=== PATIENT | male | born 1965 | race Caucasian/White ===

== ENCOUNTER 2024-06-08 15:27 | Inpatient (IN) | payer BC, SELFPAY ==
[2024-06-07] VITALS (10 sets, daily range): BP systolic 150–182; BP diastolic 84–109; BMI 27.7
[2024-06-07] MEDS: VALIUM INJECTION 5 MG IV (11:04)
[2024-06-07] MEDS: TORADOL 15 MG IV (11:04)
[2024-06-07] MEDS: DECADRON 10 MG IV (12:23)
[2024-06-07 13:27] LABS: % Basophils 0.6 % (0-2); % Eosinophils 0.1 % (0-6); % Immature Granulocytes 0.5 % (0-0.5); % Lymphocytes 12.2 % (20.5-51.1); % Monocytes 8.3 % (1.7-9.3); % Neutrophils 78.3 % (42.2-75.2); Absolute Basophils 0.1 10^3/uL (0-0.2); Absolute Lymphocytes 1.1 10^3/uL (1.2-3.4); Absolute Monocytes 0.7 10^3/uL (0.1-0.6); Absolute Neutrophils 6.9 10^3/uL (1.4-6.5); Hemoglobin 15.5 g/dL (13.0-18.0); Mean Corpuscular Hgb 32.4 pg (27.0-31.0); Mean Corpuscular Volume 89.8 fL (80.0-94.0); Nucleated Red Blood Cells % 0 % (-); Platelet Count 111 10^3/uL (130-400); Red Blood Cell Count 4.79 10^6/uL (4.70-6.10); Red Cell Dist. Width 12.1 % (11.5-14.5); White Blood Cell Count 8.8 10^3/uL (4.8-10.8)
[2024-06-07 13:33] LABS: ALT (SGPT) 43 U/L (0-50); AST (SGOT) 35 U/L (17-59); Albumin 3.7 g/dl (3.5-5.0); Alkaline Phosphatase 68 U/L (38-126); Blood Urea Nitrogen 18 mg/dl (9-20); Calcium 8.6 mg/dl (8.4-10.2); Carbon Dioxide 28 mmol/L (22-30); Chloride 94 mmol/L (98-107); Estimated Creatinine Clearance 112 ml/min; Glucose 253 mg/dl (70-99); Potassium 4.4 mmol/L (3.5-5.1); Sodium 131 mmol/L (135-145); Total Bilirubin 2.3 mg/dl (0.2-1.3); Total Protein 6.5 g/dl (6.3-8.2); eGFR > 60.00
--- NOTE | 2024-06-07 14:13 | ED.GENMED ---
History of Present Illness
General
Chief Complaint: Back Pain
Time Seen by Provider: 06/07/24 10:51
History of Present Illness
History of Present Illness:
58-year-old male presents to the emergency department for evaluation of intractable low back pain. Pain has been ongoing for the past several days but in the past 3 days has become so severe that he is unable to walk. He is having frequent spasms
because his legs do feel weak. Denies any urinary retention or incontinence. No saddle anesthesias. Does have chronic left lower extremity radiculopathy' sciatica' but reports new paresthesias and radicular pain into the right foot today. Denies
any traumatic injuries.
Past History
Past History
ED Past Medical History: None
Social History
Tobacco: Non-smoker
Personal:
Living: with family
Employment: Employed
Review of Systems
Review of Systems
Allergies reviewed?: Yes
All Other Systems: ROS reviewed and negative except as documented in HPI and ROS
Phy Exam
Physical Exam
Physical Exam:
GEN: Well appearing, NAD, WDWN
HEENT: Oral mucosa moist, no scleral icterus
Cardiac: Regular rate
Lung: No respiratory distress, no tachypnea
MSK: No gross deformity or injuries. No reproducible tenderness to the lumbar spine or spinous processes. Lumbar range of motion profoundly limited due to patient's severe pain
Skin: Good color, no pallor or jaundice, no rashes
Neuro: AO x3, 5 out of 5 strength of bilateral lower extremities with 1+ patellar reflexes, sensation to light palpation intact bilaterally
Psych: Calm, cooperative
Course
Orders/Labs/Results
Orders:
Orders
06/07/24 10:51
Ketorolac [Toradol] 15 mg IV NOW STA
diazePAM [Valium Injection] 5 mg IV NOW STA
06/07/24 12:14
CR Lumbar Spine 2 Or 3 Views Urgent
Comment:
Reason For Exam: low back pain
06/07/24 12:18
Dexamethasone Sod Phosphate [Decadron] 10 mg IV NOW STA
06/07/24 13:07
Complete Blood Count/With Diff Urgent
Comprehensive Metabolic Panel Urgent
Abnormal Lab Results
06/07/24
13:07
MCH 32.4 H pg
(27.0-31.0)
Plt Count 111 L 10^3/uL
(130-400)
Absolute Neuts (auto) 6.9 H 10^3/uL
(1.4-6.5)
Absolute Lymphs (auto) 1.1 L 10^3/uL
(1.2-3.4)
Absolute Monos (auto) 0.7 H 10^3/uL
(0.1-0.6)
Neutrophils % 78.3 H %
(42.2-75.2)
Lymphocytes % 12.2 L %
(20.5-51.1)
Sodium 131 L mmol/L
(135-145)
Chloride 94 L mmol/L
(98-107)
Glucose 253 H mg/dl
(70-99)
Total Bilirubin 2.3 H mg/dl
(0.2-1.3)
06/07/24 13:07
06/07/24 13:07
Vital Signs
Initial and Last Documented VS:
Initial Vital Signs
Pulse Resp Pulse Ox
107 19 95
06/07/24 10:51 06/07/24 10:51 06/07/24 10:51
Last Documented Vital Signs
Temp Pulse Resp BP Pulse Ox
98.6 F 99 18 157/84 94
06/07/24 10:52 06/07/24 14:07 06/07/24 14:07 06/07/24 14:07 06/07/24 14:07
MDM/Problems Addressed
MDM/Problems Addressed:
Patient has intractable pain with any degree of movement. He does have some degree of radiculopathy but no saddle anesthesias, lower extremity weakness, or urinary retention concerning for cauda equina. However after multiple rounds of IV
medications the patient was unable to achieve any degree of pain control thus we will admit for further pain control
*Critical Care Note
Total Time (30-74mins, 75-104mins- exclusive of procedures): Not Applicable
ED Attending Note
-
Portions of this chart may have been created with voice recognition software.� Occasional wrong word or��sound alike� substitutions may have occurred due to the inherent limitations of voice recognition software.
Discharge Plan
Departure
Patient Disposition: Admit
Date of Disposition: 06/07/24
Time of Disposition: 14:16
Admit to: Med/Surg
Presentation/result/management discussed w/ accepting MD/DO: Hospitalist
Discharge Problem:
Intractable low back pain
Prescriptions:
No Action
ibuprofen [Advil] 200 mg Tablet
400 mg PO Q8HPRN PRN (Reason: mild pain)
Icy Hot (menthol) 5 % Adhesive Patch,Medicated
1 patch TOPICAL HSPRN PRN (Reason: sacral area pain)
Referrals:
UNKNOWN - PT DOES,NOT KNOW [Family Provider] -
Interventions
Interventions:
*Risk Screen - Suicide Last Done: 06/07/24 10:52
*General Assessment Last Done: 06/07/24 10:52
*Neglect/Abuse Screening Last Done: 06/07/24 10:52
*ED- Fall Risk Assessment Last Done: 06/07/24 10:52
*ED COVID-19 Vaccine History Last Done: 06/07/24 10:52
ED-Musculoskeletal Assessment Last Done: 06/07/24 10:52
Discharge Date and Time
Print Language: KYRGYZ
--- NOTE | 2024-06-07 14:35 | HPS.HSE ---
Addendum entered and electronically signed by Merary Ramírez DO 06/07/24 17:26:
Total bili elevated 2.3
-no RUQ abdominal pain
-repeat CMP in am, monitor for now
Original Note:
Family Physician
-
Family Physician: NOT KNOW UNKNOWN - PT DOES
Chief Complaint
-
Intractable low back pain
History of Present Illness
The patient is a 58-year-old male without significant past medical history who presented to the emergency department secondary to intractable low back pain. He states his pain has been going on for the past several days since Monday however over
the past 3 days has become so severe and is unable to ambulate currently. He describes it as low back spasms that are so severe he cannot get up out of bed. He also had chills yesterday. He has had sciatica 20 years ago and he says this does not
feel anything like it did back then. He has frequent spasms and his legs feel weak. He denies any urinary incontinence nor retention. He denies any saddle anesthesia. He has chronic left sided lower extremity radicular radiculopathy and sciatica
however reports that these new symptoms are radiating to the foot today. His laboratory in the emergency department is remarkable for platelets 111 glucose 253 total bilirubin 2.3 sodium 131 chloride 94. Lumbar spine x-ray performed in the
emergency department pending official read.
ED treatment: Toradol 50 mg IV, Valium 5 mg IV, Decadron 10 mg IV
Medical History
Past Medical History
Past Medical History: Reports Other (Chronic left lower extremity radiculopathy described as sciatica)
Past Surgical History: Reports None
Social History
Tobacco: Non-smoker
Alcohol: Occasional
Drug: None
Personal:
Living: With Family
Family History
Family History: Not pertinent
Allergies / Home Medications
Allergies reflects when Allergies were last updated in [facility].
Home Medications with original date entered in [facility]
Allergy/Medication List:
Allergies
Allergy/AdvReac Type Severity Reaction Status Date / Time
No Known Allergies Allergy Unverified 07/18/16 15:43
Home Medications
ibuprofen 200 mg tablet (Advil) 400 mg PO Q8HPRN PRN mild pain 06/07/24
menthol 5 % topical patch (Icy Hot (menthol)) 1 patch topical HSPRN PRN sacral area pain 06/07/24
Review of Systems
-
A 12 point ROS was completed and negative except as noted: Yes
Physical Exam
Vital Signs
Vital Signs
Temp Pulse Resp BP Pulse Ox
98.6 F 99 18 157/84 94
06/07/24 10:52 06/07/24 14:07 06/07/24 14:07 06/07/24 14:07 06/07/24 14:07
Physical Exam
General: Well Developed, Well Nourished and Other (Uncomfortable due to pain)
HEENT: NormoCephalic, Anicteric and Moist mucous membranes
Respiratory: Clear
Cardiac: S1/S2 and Regular Rhythm
GI: Soft, Non Tender and Non Distended
Musculoskeletal: No Clubbing, No Cyanosis, No Edema and Other (Straight leg test on the right is positive at 30 degrees)
Skin: Warm and Dry
Neuro: AO x 3 and No Motor Deficits
Laboratory Results
-
06/07/24 13:07
06/07/24 13:07
Laboratory Results
Total Bilirubin 2.3 mg/dl (0.2-1.3) H 06/07/24 13:07
AST 35 U/L (17-59) 06/07/24 13:07
ALT 43 U/L (0-50) 06/07/24 13:07
Alkaline Phosphatase 68 U/L (38-126) 06/07/24 13:07
Data Reviewed
-
Diagnostic Radiology: Image Personally Visualized and interpreted and Report Reviewed by me (Mild multilevel degenerative disc disease within lumbar spine, as above. Nonspecific mild to moderate gaseous distention of multiple small and large bowel
loops. Mild to moderate amount stool within the proximal colon.)
Impression/Plan
-
IMPRESSION:
# Multiple levels of degenerative disc disease within the lumbar spine
# Intractable low back pain associated with severe spasms and chills yesterday, status post 1 dose of Decadron IV in the emergency department
- Continue Tylenol as needed, IV Toradol as needed, IV Dilaudid low-dose as needed for breakthrough pain
- MRI of the spine pending
-Physical therapy consultation
- Consider consultation to neurosurgery or interventional radiology pending imaging results
-
#Mild Thrombocytopenia, platelets 111, no bleeding
Repeat CBC in the morning, monitor for now pending repeat
# Hyperglycemia, no diagnosis of diabetes
Check hemoglobin A1c, glucose monitor
DVT proph-loveno does not physical therapy consultationx
Full Code
--- NOTE | 2024-06-07 16:01 | EDRN ---
case management currently at the pts bedside
--- NOTE | 2024-06-07 16:32 | CM ---
Patient seen at bedside with spouse. Patient states that he lives in a one story home with CPAP and no other DME. Patient had gone to [facility] several years ago but is not current with practice. Patient uses the [facility] on [address].
Patient indicated that he has been independent up until last several days and is unable to walk at this time. CM will continue to follow for discharge planning needs.
Plan; home with ; pending medical treatment plan
--- NOTE | 2024-06-07 17:15 | EDRN ---
this RN called the receiving unit and notified them that paper report was going to bed tubed up
[2024-06-07] MEDS: NSS 500 IV (17:18)
[2024-06-07] MEDS: NSS 1000 IV (18:45)
[2024-06-07] MEDS: LOVENOX 40 MG SC (18:45)
[2024-06-07] MEDS: TORADOL 10 MG IV (18:47)
--- NOTE | 2024-06-08 06:25 | W.PN.HOSP.TC ---
Today's Communication/Plan
-
see a/p
Assessment / Plan
Assessment / Plan
Physical Exam
General: No acute distress, appears comfortable at this time
HEENT: NormoCephalic, Anicteric and Moist mucous membranes
Respiratory: Clear
Cardiac: S1/S2 and Regular Rhythm
GI: Soft, Non Tender and Non Distended
Musculoskeletal: No Clubbing, No Cyanosis, No Edema, (+)Straight leg test RLE
Skin: Warm and Dry
Neuro: AO x 3 and No Motor Deficits
58M hx sciatica, has not followed with primary in years, here for intractable back pain. Found to have sepsis infectious discitis w/o shock, uncontrolled diabetes, and hypertension.
# Multiple levels of degenerative disc disease within the lumbar spine
# Intractable low back pain associated with severe spasms and chills yesterday, status post 1 dose of Decadron IV in the emergency department
#Sepsis (tachycardia, fever) Infectious Discitis, Vertebral Osteomyelitis
#Lactic Acidosis
- Continue Tylenol as needed, IV Toradol as needed, IV Dilaudid low-dose as needed for breakthrough pain
-procal elevated 2.41
MRI appreciated:
1. Acute infectious discitis at L3/L4 with adjacent acute osteomyelitis in the vertebral body endplates and mild right-sided paraspinal soft tissue edema. Acute discogenic degenerative disease is an alternative diagnostic possibility.
2. Mild central canal stenosis and moderate bilateral neural foraminal narrowing at L3/L4.
3. Moderate Central Canal Stenosis w severe b/l lateral recess stenosis L4/L5 secondary to 3 mm grade 1 anterolisthesis and a small central disc herniation.
4. Small central disc herniation at L5/S1.
5. 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
-Physical therapy consultation
- received 2g Ceftriaxone empirically for sepsis prior to MRI report as above
- ID eval appreciated hold further abx at this time, check AM ESR CRP, IR eval requested for biopsy
- Case and imaging results, including severe bilateral recess stenosis noted on MRI, discussed with neurosurgery communications supervisor, inpt neurosurgery eval not indicated at this time
-Lactic Acid 3.5 trend
-received 30 cc/kg IVF NS bolus, A focused exam was performed after fluid resuscitation.
-follow blood cultures
#Mild Thrombocytopenia
monitor
# Uncontrolled Diabetes
#Likely Diabetic Neuropathy numbness tingling b/l feet
A1c 10.7
Diabetes GREASE REFINING SUPERVISOR eval to be requested Monday
Sliding scale low dose algorithm
Metformin 500 mg BID started
Carb controlled diet
DVT proph- lovenox
Full Code
discussed with patient and patient's Debbi
I spent a total of 50 minutes with the patient or on the floor. More than 50% of this time involved counseling and coordination of care.
Anticipated Discharge: > 48 hours
Subjective/Interval History
-
Date of Service: June 08, 2024
reports improvement in pain since admission and treatment. Able ambulate and rotate at hip in bed. Day's events significant for tachycardia fever concerning for sepsis. BP however stable/high. Lactic acidosis elevated at 3.5. Patient otherwise
AOx3 conversant coherent. Debbi present during evaluation.
Objective Data
-
Labs:
Laboratory Results
06/08/24
06:00
WBC Pending
Hgb Pending
Hct Pending
Plt Count Pending
Sodium Pending
Potassium Pending
Chloride Pending
Carbon Dioxide Pending
BUN Pending
Creatinine Pending
Glucose Pending
Calcium Pending
Total Bilirubin Pending
AST Pending
ALT Pending
Alkaline Phosphatase Pending
Vital Signs:
Vital Signs
Temp Pulse Resp BP Pulse Ox
98.0 F 85 18 164/92 97
06/07/24 18:45 06/07/24 18:45 06/07/24 18:45 06/07/24 18:45 06/07/24 18:45
[2024-06-08 06:58] LABS: Hematocrit 42.5 % (39.0-52.0); Hemoglobin 15.5 g/dL (13.0-18.0); Mean Corp Hgb Conc. 36.5 g/dL (33.0-37.0); Mean Corpuscular Hgb 32.2 pg (27.0-31.0); Mean Corpuscular Volume 88.4 fL (80.0-94.0); Mean Platelet Volume 10.3 fL (7.4-10.4); Platelet Count 119 10^3/uL (130-400); Red Blood Cell Count 4.81 10^6/uL (4.70-6.10); Red Cell Dist. Width 11.9 % (11.5-14.5)
[2024-06-08 07:19] LABS: ALT (SGPT) 47 U/L (0-50); AST (SGOT) 37 U/L (17-59); Albumin 3.6 g/dl (3.5-5.0); Alkaline Phosphatase 74 U/L (38-126); Blood Urea Nitrogen 24 mg/dl (9-20); Calcium 8.9 mg/dl (8.4-10.2); Carbon Dioxide 26 mmol/L (22-30); Chloride 101 mmol/L (98-107); Direct Bilirubin 0.3 mg/dl (0.0-0.4); Estimated Creatinine Clearance > 125 ml/min; Glucose 320 mg/dl (70-99); Potassium 4.1 mmol/L (3.5-5.1); Sodium 137 mmol/L (135-145); Total Bilirubin 1.5 mg/dl (0.2-1.3); Total Protein 6.4 g/dl (6.3-8.2); eGFR > 60.00
[2024-06-08 08:00] VITALS: BP 178/101
[2024-06-08 08:26] LABS: Glucose - Point of Care 341 mg/dl (70-99)
[2024-06-08 09:00] LABS: Glycohemoglobin (HgbA1c) 10.7 % (4.0-5.6)
[2024-06-08] MEDS: APRESOLINE 5 MG IV (09:32)
[2024-06-08] MEDS: TORADOL 10 MG IV ×2 (09:40→23:51)
[2024-06-08] MEDS: NOVOLOG FLEXPEN-LOW RESISTANCE 4 UNITS SC ×2 (10:00→12:33)
[2024-06-08 12:00] VITALS: BP 179/88
[2024-06-08 12:13] LABS: Glucose - Point of Care 337 mg/dl (70-99)
[2024-06-08 12:23] LABS: HDL Cholesterol 30 mg/dl; LDL Cholesterol, Calculated 61 mg/dl; Total Cholesterol 115 mg/dl (50-199); Triglyceride 122 mg/dl (10-149); Very Low Density Lipoprotein 24 mg/dl (0-30)
--- NOTE | 2024-06-08 12:32 | PTCARENOTE ---
pt and refused MRSA, COVID, and FLu testing. made aware.
[2024-06-08] MEDS: TYLENOL 1000 MG PO (12:34)
[2024-06-08] MEDS: NSS 500 IV (12:34)
[2024-06-08 12:48] LABS: Lactic Acid 3.5 mmol/L (0.7-2.0)
[2024-06-08] MEDS: LIDOCAINE 4% PATCH 2 PATCH TOPICAL (13:04)
[2024-06-08] MEDS: ROCEPHIN 2000 MG IV (13:04)
[2024-06-08] MEDS: PROTONIX IV 40 MG IV (13:04)
[2024-06-08] MEDS: STERILE WATER FOR INJECTION 20 ML IV (13:04)
[2024-06-08 13:22] LABS: Procalcitonin 2.41 ng/ml (0.0-0.25)
[2024-06-08 13:48] LABS: Urine Albumin 2+ (Neg - Trace); Urine Bilirubin Negative (Negative); Urine Character Clear (Clear); Urine Color Yellow; Urine Glucose 4+ (Negative); Urine Ketone 1+ (Negative); Urine Leukocyte 2+ (Negative); Urine Nitrite Negative (Negative); Urine Occult Blood Negative (Negative); Urine Urobilinogen Negative (Neg - 1+)
[2024-06-08] MEDS: NSS 1000 IV (13:49)
[2024-06-08 14:22] LABS: Urine Red Blood Cell 0-2 /HPF (0-2); Urine White Cell 16-20 /HPF (0-5)
[2024-06-08 14:23] LABS: Urine Bacteria Few (Negative)
--- NOTE | 2024-06-08 15:48 | CON.ID ---
Consultation
-
Date/Time Consultation Requested: 06/08/2024 1340
Date/Time Consultation Performed: 06/08/2024 1515
Requesting Provider: Dr. Stanley
Performing Provider: Dr. Macias
Reason for Consultation: Suspected discitis
Chief Complaint / Past History
History of Present Illness
Flako Eller is a 58-year-old man with a significant past medical history of LUTHER and newly diagnosed diabetes mellitus being evaluated at the request of Dr. Stanley in regards to low back pain and suspected discitis. History is obtained from chart
review, with patient interview.
The patient reports that he occasionally has had a sore back in the past, but 4 days ago he developed marked low back cramping. He reports that the pain became quite severe (10 out of 10). He spent several days on the couch, but yesterday the pain
was so great he called EMS and was brought to the emergency room.
Workup in the emergency room did not reveal a leukocytosis or fever. The patient underwent plain film imaging which revealed only mild multilevel degenerative disc disease. Today an MRI was performed which revealed changes concerning for acute
infectious discitis and acute osteomyelitis of the vertebral bodies and L3-L4. The patient has developed fevers, and Infectious Diseases is asked to comment upon further antimicrobial management.
The patient thus far has received a dose of ceftriaxone given earlier today. Blood cultures are currently pending. A urine culture is also pending.
The patient reports that earlier in the week he had an episode of sweats and chills. He has not had any recent dental work. He denies any recent infections, although he does note that he has been dealing with some nonhealing wounds on his lower
extremities that he sustained while gardening.
Currently he notes his pain is more controlled (5/10). He notes increases with twisting, and he denies any other pain.
Past History
Additional Past Medical History:
DM
LUTHER
Past Surgical History: None
Allergy History:
No Known Allergies Allergy (Unverified 07/18/16 15:43)
Medications Reviewed: Yes
Current Antibiotics:
Ceftriaxone 2 g IV x 1 dose (06/08/2024 @13:04)
Social History
Tobacco: Other (Zin packs)
Alcohol: None
Drug: None
Personal:
Living: With Family
Employment: Employed
Family History
Family History: Not Pertinent
Review of Systems
Vital Signs
Temp Pulse Resp BP Pulse Ox
103.0 F H 121 16 179/88 96
06/08/24 12:00 06/08/24 12:00 06/08/24 12:00 06/08/24 12:00 06/08/24 12:00
Physical Exam
Physical Exam
Constitutional: No Acute Distress, Comfortable and Non-toxic
Head: Normocephalic
Eyes: No Conjunctival Hemorrhage and Sclera Anicteric
Oral: No Thrush and No Ulcers
Cardiovascular: Regular Rate and S1/S2; Negative S3/S4 or Murmur
Pulmonary: Clear and Non Labored; Negative Wheezes or Rales
Gastrointestinal: Soft, Non Tender, Non Distended and Normal Bowel Sounds
Extremities: Negative Edema, Cyanosis, Erythema, Splinter Hemorrhage or Venous Insufficiency
Skin: Warm and Dry; Negative Rash or Jaundice
Wound: Other (Several superficial wounds with crusting in the lower extremity.)
Neurological: Awake and Alert
Psychological: Calm
.
Lab / Diagnostic Study Results
06/08/24 06:25
06/08/24 06:25
Abs Immat Gran (auto) 0.0 10^3/uL (0-0.05) 06/07/24 13:07
Absolute Neuts (auto) 6.9 10^3/uL (1.4-6.5) H 06/07/24 13:07
Absolute Lymphs (auto) 1.1 10^3/uL (1.2-3.4) L 06/07/24 13:07
Absolute Monos (auto) 0.7 10^3/uL (0.1-0.6) H 06/07/24 13:07
Absolute Basos (auto) 0.1 10^3/uL (0-0.2) 06/07/24 13:07
Immature Gran % 0.5 % (0-0.5) 06/07/24 13:07
Neutrophils % 78.3 % (42.2-75.2) H 06/07/24 13:07
Lymphocytes % 12.2 % (20.5-51.1) L 06/07/24 13:07
Monocytes % 8.3 % (1.7-9.3) 06/07/24 13:07
Eosinophils % 0.1 % (0-6) 06/07/24 13:07
Basophils % 0.6 % (0-2) 06/07/24 13:07
Lactic Acid 3.5 mmol/L (0.7-2.0) H 06/08/24 12:25
Procalcitonin 2.41 ng/ml (0.0-0.25) H* 06/08/24 12:25
Ur Squamous Epith Cells 3-5 /LPF (Few) 06/08/24 13:26
Microbiology Results
Micro:
06/08/24 13:26 Urine Culture - Pending
Urine
06/08/24 12:58 Blood Culture - Pending
Blood/Venous
06/08/24 12:25 Blood Culture - Pending
Blood/Venous
Imaging:
06/08/24 MRI lumbar: There is a moderate amount of fluid signal intensity in the L3/L4 intervertebral disc. There is mild loss of intervertebral disc space height. There is a moderate amount of adjacent right-sided low T1 and high T2/FLAIR signal
intensity enhancing bone marrow edema. There is also a mild amount of adjacent right-sided paraspinal soft tissue edema demonstrating postcontrast enhancement. No MRI evidence for paraspinal or epidural fluid collection to suggest an abscess.
Overall findings are suspicious for acute infectious discitis at L3/L4 with adjacent acute osteomyelitis. Acute discogenic degenerative disc disease is an alternative diagnostic possibility. Please see full dictation for additional detail.
Assessment / Plan
Low back pain
L3/L4 lumbar disc disease, with concern for acute infectious discitis and vertebral osteomyelitis
Fever
Elevated procalcitonin
Diabetes mellitus (uncontrolled; HbA1c = 10.7)
Hx LUTHER
Recommendations:
Would hold on antibiotics for the present, with current efforts directed at identification of potential etiologies of suspected discitis/osteomyelitis.
Blood cultures have been obtained. Will order a second set tomorrow.
Check ESR and CRP in AM.
Recommend Interventional Radiology consult/evaluation for possible biopsy of the disc space for culture.
May also consider Neurosurgical evaluation of the severe bilateral recess stenosis noted on the MRI.
Follow white count and temperature curve.
Tight glucose control.
Further recommendations as additional data is returned.
Care Review
Plan reviewed with: Physician (Hospitalist)
[2024-06-08 16:00] VITALS: BP 129/64
[2024-06-08] MEDS: TYLENOL 650 MG PO (16:32)
[2024-06-08] MEDS: NEURONTIN 100 MG PO ×2 (16:34→21:39)
[2024-06-08] MEDS: LOVENOX 40 MG SC (16:59)
[2024-06-08] MEDS: GLUCOPHAGE 500 MG PO (16:59)
[2024-06-08 17:44] LABS: Glucose - Point of Care 280 mg/dl (70-99)
[2024-06-08] MEDS: NOVOLOG FLEXPEN-LOW RESISTANCE 3 UNITS SC (17:45)
[2024-06-08 20:45] VITALS: BP 113/69
[2024-06-08 21:27] LABS: Lactic Acid 2.5 mmol/L (0.7-2.0)
[2024-06-08 22:14] LABS: Glucose - Point of Care 268 mg/dl (70-99)
[2024-06-08 22:32] LABS: Lactic Acid 2.2 mmol/L (0.7-2.0)
[2024-06-09] VITALS (8 sets, daily range): BP systolic 117–156; BP diastolic 68–86; PULSE 96; O2SAT 95
[2024-06-09 02:14] LABS: Lactic Acid 1.7 mmol/L (0.7-2.0)
[2024-06-09] MEDS: TYLENOL 650 MG PO (03:47)
[2024-06-09 06:32] LABS: Hematocrit 38.3 % (39.0-52.0); Hemoglobin 14.1 g/dL (13.0-18.0); Mean Corp Hgb Conc. 36.8 g/dL (33.0-37.0); Mean Corpuscular Hgb 32.3 pg (27.0-31.0); Mean Corpuscular Volume 87.8 fL (80.0-94.0); Mean Platelet Volume 9.9 fL (7.4-10.4); Platelet Count 98 10^3/uL (130-400); Red Blood Cell Count 4.36 10^6/uL (4.70-6.10); Red Cell Dist. Width 11.9 % (11.5-14.5); White Blood Cell Count 9.4 10^3/uL (4.8-10.8)
[2024-06-09 06:45] LABS: Blood Urea Nitrogen 22 mg/dl (9-20); Calcium 8.2 mg/dl (8.4-10.2); Carbon Dioxide 23 mmol/L (22-30); Chloride 101 mmol/L (98-107); Erythrocyte Sed Rate 42 mm/hour (0-20); Estimated Creatinine Clearance > 125 ml/min; Glucose 206 mg/dl (70-99); Magnesium 1.9 mg/dl (1.6-2.3); Phosphorus 2.5 mg/dl (2.5-4.5); Potassium 4.4 mmol/L (3.5-5.1); Sodium 131 mmol/L (135-145); eGFR > 60.00
--- NOTE | 2024-06-09 06:48 | W.PN.HOSP.TC ---
Today's Communication/Plan
-
cont abx as per ID
trend temp
pain control
Gabapentin increased to 200 mg TID
PT
glycemic control
Assessment / Plan
Assessment / Plan
Physical Exam
General: No acute distress, appears comfortable at this time
HEENT: NormoCephalic, Anicteric and Moist mucous membranes
Respiratory: Clear
Cardiac: S1/S2 and Regular Rhythm
GI: Soft, Non Tender and Non Distended
Musculoskeletal: No Clubbing, No Cyanosis, No Edema, (+)Straight leg test RLE
Skin: Warm and Dry
Neuro: AO x 3 conversant coherent
58M hx sciatica, has not followed with primary in years, here for intractable back pain. Found to have sepsis infectious discitis w/o shock, uncontrolled diabetes, and hypertension.
# Multiple levels of degenerative disc disease within the lumbar spine
# Intractable low back pain associated with severe spasms and chills yesterday, status post 1 dose of Decadron IV in the emergency department
#Sepsis (tachycardia, fever) Infectious Discitis, Vertebral Osteomyelitis
#Lactic Acidosis
- Continue Tylenol as needed, IV Toradol as needed, IV Dilaudid low-dose as needed for breakthrough pain
-procal elevated 2.41
MRI appreciated:
1. Acute infectious discitis at L3/L4 with adjacent acute osteomyelitis in the vertebral body endplates and mild right-sided paraspinal soft tissue edema. Acute discogenic degenerative disease is an alternative diagnostic possibility.
2. Mild central canal stenosis and moderate bilateral neural foraminal narrowing at L3/L4.
3. Moderate Central Canal Stenosis w severe b/l lateral recess stenosis L4/L5 secondary to 3 mm grade 1 anterolisthesis and a small central disc herniation.
4. Small central disc herniation at L5/S1.
5. 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
-Physical therapy consultation appreciated home health
-Lactic Acid 3.5 resolved
-received 30 cc/kg IVF NS bolus, A focused exam was performed after fluid resuscitation.
- received 2g Ceftriaxone empirically for sepsis prior to MRI report as above
- prelim blood cx's pos for gram + cocci
- ID eval appreciated abx were briefly held for planned IR bx discitis, no longer necessary with positive blood cultures, received Vanc and started on Cefazolin
- cont abx as per ID
-ESR 42
-CRP 173.10
- Case and imaging results, including severe bilateral recess stenosis noted on MRI, discussed with neurosurgery tape controlled machine stitcher, inpt neurosurgery eval not indicated at this time
#Mild Thrombocytopenia
likely 2/2 sepsis severe infection
monitor
# Uncontrolled Diabetes
#Likely Diabetic Neuropathy numbness tingling b/l feet
A1c 10.7
Diabetes HEAD OF ACQUISITIONS eval to be requested Monday
Diabetes eduction requested
Sliding scale low dose algorithm increased to moderate dose
Metformin 500 mg BID started
Carb controlled diet
#Sciatica
#Neuropathy
started on Gabapentin 100 mg TID increased to 200 mg
DVT proph- lovenox
Full Code
discussed with patient and patient's Debbi
I spent a total of 50 minutes with the patient or on the floor. More than 50% of this time involved counseling and coordination of care.
Anticipated Discharge: > 48 hours
Subjective/Interval History
-
Date of Service: June 09, 2024
Reports overall feeling well. pain improved. Hasn't noted much benefit from Gabapentin 100 mg TID. Fever spikes persist.
Objective Data
-
Labs:
Laboratory Results
06/09/24
05:48
WBC 9.4
Hgb 14.1
Hct 38.3 L
Plt Count 98 L
Sodium 131 L
Potassium 4.4
Chloride 101
Carbon Dioxide 23
BUN 22 H
Creatinine 0.7
Glucose 206 H
Calcium 8.2 L
Vital Signs:
Vital Signs
Temp Pulse Resp BP Pulse Ox
102.6 F H 107 20 156/86 96
06/09/24 03:45 06/09/24 03:45 06/09/24 03:45 06/09/24 03:45 06/09/24 03:45
I&O
06/07/24 06/08/24 06/09/24
06:59 06:59 06:59
Intake Total 980 / 980
Output Total 650 / 650 675 / 675
Balance -650 / -650 305 / 305
[2024-06-09 08:02] LABS: Glucose - Point of Care 183 mg/dl (70-99)
[2024-06-09] MEDS: LIDOCAINE 4% PATCH 2 PATCH TOPICAL (08:04)
[2024-06-09] MEDS: GLUCOPHAGE 500 MG PO ×2 (08:04→18:15)
[2024-06-09] MEDS: PROTONIX IV 40 MG IV (08:04)
[2024-06-09] MEDS: NEURONTIN 100 MG PO ×3 (08:05→16:43)
[2024-06-09] MEDS: NSS (PRESERVATIVE FREE) 10 ML IV (08:05)
[2024-06-09] MEDS: NOVOLOG FLEXPEN-MODERATE RESISTANCE 1 UNITS SC (09:44)
[2024-06-09] MEDS: MIRALAX 17 GRAMS PO (09:53)
[2024-06-09 11:44] LABS: Glucose - Point of Care 241 mg/dl (70-99)
[2024-06-09] MEDS: VANCOCIN 540 MG IV (11:53)
[2024-06-09] MEDS: ANCEF 10 IV ×2 (13:00→20:27)
--- NOTE | 2024-06-09 13:08 | W.PN.ID1 ---
Date of Service
Date of Service: June 09, 2024
Today's Communication
Continue with cefazolin.
Assessment / Plan
Low back pain
L3/L4 lumbar disc disease, with suspected acute infectious discitis and vertebral osteomyelitis
Fever
Elevated procalcitonin
Elevated ESR, CRP
Diabetes mellitus (uncontrolled; HbA1c = 10.7)
Hx LUTHER
Recommendations:
Blood cultures positive for gram-positive cocci earlier this morning.
Antibiotics initiated earlier today (cefazolin, vancomycin).
At this time, narrow to cefazolin alone given further identification of strep species by microbiology.
Follow white count and temperature curve.
Follow repeat blood cultures.
Await final isolate identification.
Tight glucose control.
Further recommendations as additional data is returned.
����������������������������������������������������������
Chief Complaint
-: Fever, Bacteremia and Other (L3-4 discitis)
Subjective / Review of Systems
Patient seen and examined. Reports back pain controlled today.
Review of Systems: Fever and No Chills
Vital Signs / Physical Exam
Vital Signs
Vital Signs
Temp Pulse Resp BP Pulse Ox
100.8 F H 98 18 139/75 96
06/09/24 11:00 06/09/24 11:00 06/09/24 11:00 06/09/24 11:00 06/09/24 11:00
Physical Exam
Constitutional: No Acute Distress, Comfortable and Non-toxic
Eyes: No Conjunctival Hemorrhage
Cardiovascular: S1/S2; Negative S3/S4 or Murmur
Pulmonary: Non Labored
Extremities: Negative Splinter Hemorrhage
Neurological: Awake and Alert
Psychological: Calm
Objective Data
Lab Data
Lab Results
06/09/24 05:48
06/09/24 05:48
ESR 42 mm/hour (0-20) H 06/09/24 05:48
Estimated Creat Clear > 125 ml/min 06/09/24 05:48
Lactic Acid 1.7 mmol/L (0.7-2.0) 06/09/24 01:55
Total Bilirubin 1.5 mg/dl (0.2-1.3) H 06/08/24 06:25
AST 37 U/L (17-59) 06/08/24 06:25
ALT 47 U/L (0-50) 06/08/24 06:25
Alkaline Phosphatase 74 U/L (38-126) 06/08/24 06:25
C-Reactive Protein 173.10 mg/L (0.0-10.00) H 06/09/24 05:48
Most recent labs reviewed.
Micro Results:
06/08/24 13:26 Urine Culture - Final
Urine
06/08/24 12:25 Blood Culture - Preliminary
Blood/Venous Positive culture in progress
Gram Stain - Strep spp. (not Gp. A, Gp. B or pneumococcus)
06/08/24 12:58 Blood Culture - Preliminary
Blood/Venous Positive culture in progress
Gram Stain - Strep spp. (not Gp. A, Gp. B or pneumococcus)
06/09/24 06:21 Blood Culture - Pending
Blood/Venous
06/09/24 05:48 Blood Culture - Pending
Blood/Venous
Imaging:
06/08/24 MRI lumbar: There is a moderate amount of fluid signal intensity in the L3/L4 intervertebral disc. There is mild loss of intervertebral disc space height. There is a moderate amount of adjacent right-sided low T1 and high T2/FLAIR signal
intensity enhancing bone marrow edema. There is also a mild amount of adjacent right-sided paraspinal soft tissue edema demonstrating postcontrast enhancement. No MRI evidence for paraspinal or epidural fluid collection to suggest an abscess.
Overall findings are suspicious for acute infectious discitis at L3/L4 with adjacent acute osteomyelitis. Acute discogenic degenerative disc disease is an alternative diagnostic possibility. Please see full dictation for additional detail.
Care Review
Plan reviewed with: Physician (Hospitalist)
[2024-06-09 13:49] LABS: Glucose - Point of Care 233 mg/dl (70-99)
[2024-06-09] MEDS: NOVOLOG FLEXPEN-MODERATE RESISTANCE 3 UNITS SC ×2 (13:50→18:24)
[2024-06-09 18:06] LABS: Glucose - Point of Care 202 mg/dl (70-99)
[2024-06-09] MEDS: LOVENOX 40 MG SC (18:29)
[2024-06-09] MEDS: TORADOL 10 MG IV (20:36)
[2024-06-09] MEDS: NEURONTIN 200 MG PO (21:27)
[2024-06-09 21:45] LABS: Glucose - Point of Care 208 mg/dl (70-99)
[2024-06-10 03:00] VITALS: BP 143/7
[2024-06-10] MEDS: ANCEF 10 IV ×3 (03:24→19:43)
[2024-06-10 05:56] LABS: Blood Urea Nitrogen 20 mg/dl (9-20); Carbon Dioxide 29 mmol/L (22-30); Chloride 98 mmol/L (98-107); Estimated Creatinine Clearance > 125 ml/min; Glucose 214 mg/dl (70-99); Phosphorus 2.7 mg/dl (2.5-4.5); Potassium 4.2 mmol/L (3.5-5.1); Sodium 131 mmol/L (135-145); eGFR > 60.00
[2024-06-10 06:26] LABS: Hematocrit 38.2 % (39.0-52.0); Hemoglobin 14.2 g/dL (13.0-18.0); Mean Corp Hgb Conc. 37.2 g/dL (33.0-37.0); Mean Corpuscular Hgb 32.6 pg (27.0-31.0); Mean Corpuscular Volume 87.6 fL (80.0-94.0); Mean Platelet Volume 9.9 fL (7.4-10.4); Platelet Count 86 10^3/uL (130-400); Red Blood Cell Count 4.36 10^6/uL (4.70-6.10); Red Cell Dist. Width 11.9 % (11.5-14.5); White Blood Cell Count 7.7 10^3/uL (4.8-10.8)
[2024-06-10 07:05] VITALS: BP 156/93
[2024-06-10 07:44] LABS: Glucose - Point of Care 207 mg/dl (70-99)
[2024-06-10] MEDS: GLUCOPHAGE 500 MG PO ×2 (08:00→17:10)
[2024-06-10] MEDS: NOVOLOG FLEXPEN-MODERATE RESISTANCE 3 UNITS SC ×2 (08:17→12:10)
[2024-06-10] MEDS: NEURONTIN 200 MG PO ×3 (08:18→21:59)
[2024-06-10] MEDS: NSS (PRESERVATIVE FREE) 10 ML IV (08:18)
[2024-06-10] MEDS: PROTONIX IV 40 MG IV (08:18)
[2024-06-10] MEDS: LIDOCAINE 4% PATCH TOPICAL (08:19)
--- NOTE | 2024-06-10 09:02 | W.PN.HOSP.TC ---
Today's Communication/Plan
-
IV antibiotics.
Assessment / Plan
Assessment / Plan
Physical exam:
General: Well Developed, Well Nourished and No Apparent Distress
HEENT: Normocephalic, Atraumatic and Moist Mucous Membranes
Respiratory: Clear to Auscultation; Negative Wheezes, Rales or Rhonchi
Cardiac: Regular Rhythm and S1/S2
GI: Soft, Nontender and Nondistended
Musculoskeletal: No Clubbing, No Cyanosis and No Edema. No midline tenderness. Tenderness usually upon movement per patient report
Neuro: Awake, Alert and Oriented, no gross neurological deficits
Psych: Calm
A/P:
Bacteremia suspected due to acute lumbar discitis:
Continue IV antibiotic, IV cefazolin
MRI lumbar spine L3-L4 suspected discitis
Blood culture Streptococcus species in 06/08
No growth from blood cultures on 06/09
Discussed with at bedside
Diabetes mellitus type 2:
Continue insulin sliding scale
Continue metformin
ACTIVITIES ATTENDANT diabetic eval
Acute on chronic lower back pain:
Pain control
LUTHER:
Continue current management
DVT prophylaxis:
Lovenox SQ
CODE STATUS:
Full code
Total time spent on today's encounter was 52 minutes which included time spent in counseling the patient/family regarding diagnosis and treatment plan as listed above, goals of care, and symptom management. Case was discussed with nursing staff,
specialists, and care coordinators/case management. All labs and imaging personally reviewed by me. Remainder the time spent in detailed review of previous records, lab data, imaging, and other medical provider documentation.
Anticipated Discharge: 24 - 48 hours
Subjective/Interval History
-
Date of Service: June 10, 2024
Patient complains of back pain but better overall. Afebrile.
Objective Data
-
Labs:
Laboratory Results
06/10/24
05:09
WBC 7.7
Hgb 14.2
Hct 38.2 L
Plt Count 86 L
Sodium 131 L
Potassium 4.2
Chloride 98
Carbon Dioxide 29
BUN 20
Creatinine 0.6 L
Glucose 214 H
Calcium 8.0 L
Vital Signs:
Vital Signs
Temp Pulse Resp BP Pulse Ox
99.9 F 103 18 156/93 96
06/10/24 07:05 06/10/24 07:05 06/10/24 07:05 06/10/24 07:05 06/10/24 07:05
I&O
06/09/24 06/10/24 06/11/24
06:59 06:59 06:59
Intake Total 980 / 980 1680 / 1680
Output Total 675 / 675 1600 / 1600
Balance 305 / 305 80 / 80
[2024-06-10 11:00] VITALS: BP 144/89
[2024-06-10] MEDS: TORADOL 10 MG IV ×2 (11:02→19:42)
[2024-06-10 12:04] LABS: Glucose - Point of Care 248 mg/dl (70-99)
--- NOTE | 2024-06-10 13:08 | PN.DE.MGMTRT ---
Insulin Management
- -
06/10/2024: Diabetes Management Consult
58 year old male with PMH: LUTHER and newly diagnosed T2DM, presented to the ED for further evaluation of intractable low back pain that has been going on for the past several days since Monday however over the past 3 days has become so severe and is
unable to ambulate currently. Patient described it as low back spasms that were so severe he could not get up out of bed. Also reports h/o sciatica x20 years. MRI lumbar spine-->L3/L4 lumbar disc disease, with suspected acute infectious discitis and
vertebral osteomyelitis. Glucose on admission was 253, his fasting blood sugar range has been 206 to 320. Current diabetes regimen includes Metformin 500mg BID and moderate corrective insulin with meals only. A1C 10.7%, Cr 0.6, eGFR >60
Pt awake, alert, oriented, resting on bed, offers no complaints, able to discuss diabetes care plan
06/09 Premeal glucose range was 202 to 241, requiring 1-4 units of corrective Insulin.
Will start HS Lantus 15 units, 1st does tonight. Start Glipizide 5mg BID and cont Metformin 500mg BID.
Pt has received Diabetes education for Insulin use and Glucose monitor instructions today, Nurse to continue with reinforcing with self injections at meal times.
Will cont to follow and adjust medications if necessary
Diabetes History
- -
Type of Diabetes: 2 requiring insulin
Pre-Admission Diabetes Regimen
06/10/24
05:09
Creatinine 0.6 L
Lab Results
Hemoglobin A1c 10.7 % (4.0-5.6) H 06/08/24 06:25
Insulin Pump Settings
IP Diabetes Regimen
06/09/24 06/09/24 06/09/24
13:48 18:05 21:43
Glucose
POC Glucose 233 H 202 H 208 H
06/10/24 06/10/24 06/10/24
05:09 07:43 12:02
Glucose 214 H
POC Glucose 207 H 248 H
Meal type: Dinner
Meal type: Lunch
Meal type: Breakfast
Amount consumed: 100%
Amount consumed: 100%
Amount consumed: 100%
Patient Education
--- NOTE | 2024-06-10 13:18 | PTCARENOTE ---
06/10/2024 DIABETES EDUCATION
I met with Flako and his review diabetes management, is newly diagnosed with T2D.
I educated on physiology of T2D, managing with medications, monitoring BG, nutrition, activity, sleep and managing stress. I reinforced signs of hyperglycemia, hypoglycemia; BS parameters and recommended HbA1c goals, written material provided.
Discussed normal target glucose ranges and a monitoring schedule preprandial AM and 2 hours postprandial.
I educated and reviewed using Contour Next glucometer, member acknowledged understanding with a self demonstration of checking BS.
I educated on mechanism of action of Metformin. I educated and demonstrated on insulin injection technique, timing, and storage. Discussed short acting insulin; onset/peak/duration, and encouraged Flako to administer his own injections with RN
supervision while admitted.
Encouraged patient to follow up with his PCP for post d/c appointment and to monitor medication and blood glucose levels. Provided list of endocrinologists if desired, to contact insurance company to verify in network status. Requested
prescription sent to pharmacy for test strips and lancets for back up SMBG. Information provided on the outpatient DSME program. Patient verbalized understanding.
[2024-06-10] MEDS: DILAUDID 0.5 MG IV (13:20)
[2024-06-10 15:10] VITALS: BP 139/83
--- NOTE | 2024-06-10 15:58 | W.PN.ID1 ---
Date of Service
Date of Service: June 10, 2024
Today's Communication
Continue antibiotics. Check echo.
Assessment / Plan
Low back pain
L3/L4 lumbar disc disease, with suspected acute infectious discitis and vertebral osteomyelitis
Streptococcal bacteremia
Fever
Elevated procalcitonin
Elevated ESR, CRP
Diabetes mellitus (uncontrolled; HbA1c = 10.7)
Hx LUTHER
Recommendations:
Blood cultures positive for strep species
Continue with cefazolin for today.
Follow white count and temperature curve.
Follow repeat blood cultures.
Await final isolate identification.
Tight glucose control.
Check TTE.
Further recommendations as additional data is returned.
����������������������������������������������������������
Chief Complaint
-: Fever, Bacteremia and Other (L3-4 discitis)
Subjective / Review of Systems
Patient seen and examined. Reports some fevers overnight.
Vital Signs / Physical Exam
Vital Signs
Vital Signs
Temp Pulse Resp BP Pulse Ox
98.0 F 80 18 139/83 96
06/10/24 15:10 06/10/24 15:10 06/10/24 15:10 06/10/24 15:10 06/10/24 15:10
Physical Exam
Constitutional: No Acute Distress, Comfortable and Non-toxic
Eyes: No Conjunctival Hemorrhage
Cardiovascular: S1/S2; Negative S3/S4 or Murmur
Pulmonary: Non Labored
Extremities: Negative Splinter Hemorrhage
Neurological: Awake and Alert
Psychological: Calm
Objective Data
Lab Data
Lab Results
06/10/24 05:09
06/10/24 05:09
ESR 42 mm/hour (0-20) H 06/09/24 05:48
Estimated Creat Clear > 125 ml/min 06/10/24 05:09
Lactic Acid 1.7 mmol/L (0.7-2.0) 06/09/24 01:55
Total Bilirubin 1.5 mg/dl (0.2-1.3) H 06/08/24 06:25
AST 37 U/L (17-59) 06/08/24 06:25
ALT 47 U/L (0-50) 06/08/24 06:25
Alkaline Phosphatase 74 U/L (38-126) 06/08/24 06:25
C-Reactive Protein 173.10 mg/L (0.0-10.00) H 06/09/24 05:48
Most recent labs reviewed.
Micro Results:
06/08/24 12:58 Blood Culture - Preliminary
Blood/Venous Streptococcus species
Gram Stain - Final
06/08/24 12:25 Blood Culture - Preliminary
Blood/Venous Streptococcus species
Gram Stain - Final
06/09/24 06:21 Blood Culture - Preliminary
Blood/Venous No Growth in 24 hours- Final report to follow
06/09/24 05:48 Blood Culture - Preliminary
Blood/Venous No Growth in 24 hours- Final report to follow
06/08/24 13:26 Urine Culture - Final
Urine
Imaging:
06/08/24 MRI lumbar: There is a moderate amount of fluid signal intensity in the L3/L4 intervertebral disc. There is mild loss of intervertebral disc space height. There is a moderate amount of adjacent right-sided low T1 and high T2/FLAIR signal
intensity enhancing bone marrow edema. There is also a mild amount of adjacent right-sided paraspinal soft tissue edema demonstrating postcontrast enhancement. No MRI evidence for paraspinal or epidural fluid collection to suggest an abscess.
Overall findings are suspicious for acute infectious discitis at L3/L4 with adjacent acute osteomyelitis. Acute discogenic degenerative disc disease is an alternative diagnostic possibility. Please see full dictation for additional detail.
[2024-06-10 16:45] LABS: Glucose - Point of Care 255 mg/dl (70-99)
[2024-06-10] MEDS: GLUCOTROL 5 MG PO (17:10)
[2024-06-10] MEDS: LOVENOX 40 MG SC (17:10)
--- NOTE | 2024-06-10 17:56 | CM ---
PT eval = VN
[place] offer [place] to [place]
Continues on IV antibiotics.
PLAN Home with VN if accepted
[2024-06-10] MEDS: NOVOLOG FLEXPEN-MODERATE RESISTANCE 5 UNITS SC (18:25)
[2024-06-10 19:57] VITALS: BP 133/85
[2024-06-10 21:43] LABS: Glucose - Point of Care 117 mg/dl (70-99)
[2024-06-10] MEDS: LANTUS 0.15 UNITS SC (22:00)
[2024-06-10 23:10] VITALS: BP 133/78
[2024-06-11] MEDS: ANCEF 10 IV ×2 (03:46→11:39)
[2024-06-11 03:55] VITALS: BP 132/80
[2024-06-11] MEDS: DILAUDID 0.5 MG IV (05:01)
[2024-06-11 06:07] LABS: Hematocrit 37.7 % (39.0-52.0); Hemoglobin 13.8 g/dL (13.0-18.0); Mean Corp Hgb Conc. 36.6 g/dL (33.0-37.0); Mean Corpuscular Hgb 32.2 pg (27.0-31.0); Mean Corpuscular Volume 87.9 fL (80.0-94.0); Mean Platelet Volume 9.8 fL (7.4-10.4); Platelet Count 94 10^3/uL (130-400); Red Blood Cell Count 4.29 10^6/uL (4.70-6.10); Red Cell Dist. Width 12.1 % (11.5-14.5); White Blood Cell Count 6.1 10^3/uL (4.8-10.8)
[2024-06-11 06:17] LABS: Blood Urea Nitrogen 16 mg/dl (9-20); Calcium 8.1 mg/dl (8.4-10.2); Carbon Dioxide 26 mmol/L (22-30); Chloride 100 mmol/L (98-107); Estimated Creatinine Clearance > 125 ml/min; Glucose 123 mg/dl (70-99); Potassium 4.4 mmol/L (3.5-5.1); Sodium 134 mmol/L (135-145); eGFR > 60.00
[2024-06-11 07:21] VITALS: BP 144/91
[2024-06-11] MEDS: GLUCOTROL 5 MG PO ×2 (07:56→16:31)
[2024-06-11] MEDS: GLUCOPHAGE 500 MG PO ×2 (07:56→16:31)
[2024-06-11] MEDS: LIDOCAINE 4% PATCH TOPICAL (07:57)
[2024-06-11] MEDS: PROTONIX IV 40 MG IV (07:57)
[2024-06-11] MEDS: NEURONTIN 200 MG PO ×3 (07:57→22:10)
[2024-06-11] MEDS: NSS (PRESERVATIVE FREE) 10 ML IV (07:57)
[2024-06-11] MEDS: TORADOL 10 MG IV ×3 (08:06→22:10)
[2024-06-11 08:21] LABS: Glucose - Point of Care 135 mg/dl (70-99)
[2024-06-11] MEDS: NOVOLOG FLEXPEN-MODERATE RESISTANCE SC ×3 (08:30→17:35)
--- NOTE | 2024-06-11 08:37 | W.PN.HOSP.TC ---
Addendum entered and electronically signed by Capo Riggs MD 06/11/24 17:20:
strep bovis so gi eval. TTE shows vegetation so cardiology for [facility]. Reduce Lantus in half and npo after midnight.
Original Note:
Today's Communication/Plan
-
IV antibiotics
Assessment / Plan
Assessment / Plan
Physical exam:
General: Well Developed, Well Nourished and No Apparent Distress
HEENT: Normocephalic, Atraumatic and Moist Mucous Membranes
Respiratory: Clear to Auscultation; Negative Wheezes, Rales or Rhonchi
Cardiac: Regular Rhythm and S1/S2
GI: Soft, Nontender and Nondistended
Musculoskeletal: No Clubbing, No Cyanosis and No Edema. No midline tenderness. Tenderness usually upon movement per patient report
Neuro: Awake, Alert and Oriented, no gross neurological deficits
Psych: Calm
A/P:
Bacteremia suspected due to acute lumbar discitis:
Continue IV antibiotic, IV cefazolin
MRI lumbar spine L3-L4 suspected discitis
Blood culture Streptococcus species in 06/08
No growth from blood cultures on 06/09
Discussed with at bedside yesterday
ID ordered TTE
Diabetes mellitus type 2:
Continue insulin sliding scale
Continue metformin
JUNIOR PROJECT MANAGER diabetic eval appreciated
started on lantus
Acute on chronic lower back pain:
Pain control
LUTHER:
Continue current management
DVT prophylaxis:
Lovenox SQ
CODE STATUS:
Full code
Total time spent on today's encounter was 52 minutes which included time spent in counseling the patient/family regarding diagnosis and treatment plan as listed above, goals of care, and symptom management. Case was discussed with nursing staff,
specialists, and care coordinators/case management. All labs and imaging personally reviewed by me. Remainder the time spent in detailed review of previous records, lab data, imaging, and other medical provider documentation.
Anticipated Discharge: > 48 hours
Subjective/Interval History
-
Date of Service: June 11, 2024
c/o back pain on off but tolerable with meds, no n/v/d. Afebrile
Objective Data
-
Labs:
Laboratory Results
06/11/24
05:12
WBC 6.1
Hgb 13.8
Hct 37.7 L
Plt Count 94 L
Sodium 134 L
Potassium 4.4
Chloride 100
Carbon Dioxide 26
BUN 16
Creatinine 0.5 L
Glucose 123 H
Calcium 8.1 L
Vital Signs:
Vital Signs
Temp Pulse Resp BP Pulse Ox
98.7 F 80 20 144/91 97
06/11/24 07:21 06/11/24 07:21 06/11/24 07:21 06/11/24 07:21 06/11/24 07:21
I&O
06/10/24 06/11/24 06/12/24
06:59 06:59 06:59
Intake Total 1680 / 1680 1920 / 1920
Output Total 1600 / 1600 300 / 300
Balance 80 / 80 1620 / 1620
--- NOTE | 2024-06-11 09:58 | PN.DE.MGMTRT ---
Insulin Management
- -
06/11/2024: Diabetes Management Follow up
58 year old male with PMH: LUTHER and newly diagnosed T2DM, presented to the ED for further evaluation of intractable low back pain that has been going on for the past several days since Monday however over the past 3 days has become so severe and is
unable to ambulate currently. Patient described it as low back spasms that were so severe he could not get up out of bed. Also reports h/o sciatica x20 years. MRI lumbar spine-->L3/L4 lumbar disc disease, with suspected acute infectious discitis and
vertebral osteomyelitis. Glucose on admission was 253, his fasting blood sugar range has been 206 to 320. Current diabetes regimen includes Metformin 500mg BID and moderate corrective insulin with meals only. A1C 10.7%, Cr 0.6, eGFR >60
Pt awake, alert, oriented, sitting up in bed, offers no complaints, able to discuss diabetes care plan. SO- Debbi at bedside, all questions answered.
06/10 Premeal glucose range was 207 to 255, Glipizide 5mg BID was started. HS glucose 117, FBG 123V, 135 POC this AM.
Will make no changes to current regimen: HS Lantus 15 units, Glipizide 5mg BID and Metformin 500mg BID.
Pt has received Diabetes education for Insulin use and Glucose monitor instructions today, Nurse to continue with reinforcing with self injections at meal times.
Will cont to follow and adjust medications if necessary. Had lengthy d/w pt about insulin and Glipizide and current A1C. Emphasized importance of optimal glucose control. Encouraged pt to call [employer] office and register for OP DSME classes.
Diabetes Nurse Educator will followup with pt tomorrow to reinforce insulin and glucose monitor education.
Diabetes History
- -
Type of Diabetes: 2 requiring insulin
Pre-Admission Diabetes Regimen
06/11/24
05:12
Creatinine 0.5 L
Lab Results
Hemoglobin A1c 10.7 % (4.0-5.6) H 06/08/24 06:25
Insulin Pump Settings
IP Diabetes Regimen
06/10/24 06/10/24 06/10/24
12:02 16:43 21:42
Glucose
POC Glucose 248 H 255 H 117 H
06/11/24 06/11/24
05:12 08:20
Glucose 123 H
POC Glucose 135 H
Meal type: Lunch
Meal type: Breakfast
Amount consumed: 100%
Amount consumed: 95%
Patient Education
[2024-06-11 10:58] VITALS: BP 126/75
[2024-06-11 12:14] LABS: Glucose - Point of Care 111 mg/dl (70-99)
--- NOTE | 2024-06-11 14:50 | W.PN.ID1 ---
Date of Service
Date of Service: June 11, 2024
Today's Communication
Continue antibiotics.
Assessment / Plan
Low back pain
L3/L4 lumbar disc disease, with suspected acute infectious discitis and vertebral osteomyelitis
Streptococcal bacteremia
Fever
Elevated procalcitonin
Elevated ESR, CRP
Diabetes mellitus (uncontrolled; HbA1c = 10.7)
Hx LUTHER
Recommendations:
Blood cultures positive for Strep bovis.
Transition to ceftriaxone 2 g IV every 24 hours.
- Patient will require 6 weeks of therapy.
- PICC line when rpt blood cultures negative x48-72 hours.
Await TTE.
Given association of strep bovis with GI malignancy, will have Gastroenterology evaluate.
Follow white count and temperature curve.
Tight glucose control.
����������������������������������������������������������
Chief Complaint
-: Fever, Bacteremia and Other (L3-4 discitis)
Subjective / Review of Systems
Review of Systems: No Fever and No Chills
Vital Signs / Physical Exam
Vital Signs
Vital Signs
Temp Pulse Resp BP Pulse Ox
98.2 F 89 20 126/75 97
06/11/24 10:58 06/11/24 10:58 06/11/24 10:58 06/11/24 10:58 06/11/24 12:14
Physical Exam
Constitutional: No Acute Distress, Comfortable and Non-toxic
Eyes: No Conjunctival Hemorrhage
Cardiovascular: S1/S2; Negative S3/S4 or Murmur
Pulmonary: Non Labored
Extremities: Negative Splinter Hemorrhage or [place] Lesions
Neurological: Awake and Alert
Psychological: Calm
Objective Data
Lab Data
Lab Results
06/11/24 05:12
06/11/24 05:12
ESR 42 mm/hour (0-20) H 06/09/24 05:48
Estimated Creat Clear > 125 ml/min 06/11/24 05:12
Lactic Acid 1.7 mmol/L (0.7-2.0) 06/09/24 01:55
Total Bilirubin 1.5 mg/dl (0.2-1.3) H 06/08/24 06:25
AST 37 U/L (17-59) 06/08/24 06:25
ALT 47 U/L (0-50) 06/08/24 06:25
Alkaline Phosphatase 74 U/L (38-126) 06/08/24 06:25
C-Reactive Protein 173.10 mg/L (0.0-10.00) H 06/09/24 05:48
Most recent labs reviewed.
Micro Results:
06/08/24 12:58 Blood Culture - Final
Blood/Venous Streptococcus bovis
Gram Stain - Final
06/08/24 12:25 Blood Culture - Final
Blood/Venous Streptococcus bovis
Gram Stain - Final
06/09/24 06:21 Blood Culture - Preliminary
Blood/Venous No Growth in 48 hours- Final report to follow
06/09/24 05:48 Blood Culture - Preliminary
Blood/Venous No Growth in 48 hours- Final report to follow
06/08/24 13:26 Urine Culture - Final
Urine
Blood Culture Final 06/08/24
Streptococcus bovis group
Organism 1 Streptococcus bovis
1. Streptococcus bovis
M.I.C. RX
--------- ---
Azithromycin <=0.5 S
Ceftriaxone <=1 S
Clindamycin <=0.06 S
Levofloxacin <=0.5 S
Penicillin G 0.06 S
Tetracycline <=0.5 S
Vancomycin 0.5 S
Imaging:
06/08/24 MRI lumbar: There is a moderate amount of fluid signal intensity in the L3/L4 intervertebral disc. There is mild loss of intervertebral disc space height. There is a moderate amount of adjacent right-sided low T1 and high T2/FLAIR signal
intensity enhancing bone marrow edema. There is also a mild amount of adjacent right-sided paraspinal soft tissue edema demonstrating postcontrast enhancement. No MRI evidence for paraspinal or epidural fluid collection to suggest an abscess.
Overall findings are suspicious for acute infectious discitis at L3/L4 with adjacent acute osteomyelitis. Acute discogenic degenerative disc disease is an alternative diagnostic possibility. Please see full dictation for additional detail.
[2024-06-11 15:44] VITALS: BP 137/84
--- NOTE | 2024-06-11 15:50 | CON.GI ---
Consultation
-
Date/Time Consultation Requested: 06/11/24 1430
Date/Time Consultation Performed: 06/11/24 1550
Requesting Provider: Capo Riggs MD
Performing Provider: RONY Mathew, Kathy Mosley DO
Reason for Consultation: step Bovis bacteremia
Medical History
Chief Complaint / HPI
Chief Complaint: abnormal bacteremia
History of Present Illness:
Pt is a 58yo with hx LUTHER, newly diagnosed T2DM with onset of worsening low back pain and concern for discitis with osteomyelitis on imaging. He has been seen by ID and also noted with strep bovis bacteremia. GALINA pending but asked to see for
colonoscopy to rule out GI source of step bovis bacteremia. Labs otherwise notable for hbg 13.8, platelets 94,000, Na 134, glucose 100-200 range with hbg A1c 10.7, CRP 173 and mild bili elevation of 2.3 on admission.
In review with patient noted worsening back pain that is starting to improved but denies dysphagia, GERD, nausea, vomiting, abdominal pain, diarrhea, constipation or rectal bleeding. No prior EGD and hx colonoscopy 24 years ago for rectal
bleeding. Did not recall any abnormalities.
Past Medical History
Past Medical History: NIDDM and Other (chronic lower extremity, radiculopathy, LUTHER)
Social History
Tobacco: Other (former vape, uses some chew tobacco)
Alcohol: Occasional
Drug: None
Personal:
Living: With Family
Employment: Employed
Family History
Family History: Reviewed & Not Pertinent
Allergies / Home Medications
Allergy/AdvReac Type Severity Reaction Status Date / Time
No Known Allergies Allergy Unverified 07/18/16 15:43
�Medication �Instructions �Recorded
ibuprofen 200 mg tablet (Advil) 400 mg PO Q8HPRN PRN mild pain 06/07/24
menthol 5 % topical patch (Icy Hot 1 patch topical HSPRN PRN sacral 06/07/24
(menthol)) area pain
blood sugar diagnostic (OneTouch #100 ea 06/11/24
Verio test strips)
blood-glucose meter (OneTouch #1 ea 06/11/24
Verio Flex Meter)
lancets 30 gauge (Onetouch Delica #100 ea 06/11/24
Safety Lancet)
pen needle, diabetic 32 gauge x #100 ea 06/11/24
' (Sherice 2nd Gen Pen Needle)
Review of Systems
-
History Source: Patient and Family
Constitutional: Reports Fever (up to 103 on admission )
EENT: Reports No Symptoms
Respiratory: Reports No Symptoms
Cardiac: Reports No Symptoms
Abdomen/GI: Reports No Symptoms
: Reports No Symptoms
Musculoskeletal: Reports Other (low back pain )
Neurological: Reports No Symptoms
Endocrine: Reports No Symptoms
Hematologic/Lymphatic: Reports No Symptoms
Vital Signs
Temp Pulse Resp BP Pulse Ox
98.4 F 84 16 137/84 95
06/11/24 15:44 06/11/24 15:44 06/11/24 15:44 06/11/24 15:44 06/11/24 15:44
Physical Exam
Exam
General: Well Developed, Well Nourished and No Apparent Distress
HEENT: Normocephalic, Anicteric and Moist Mucous Membranes
Respiratory: Clear
Cardiac: Regular Rhythm
GI: Soft and Non Distended
Musculoskeletal: No Clubbing and No Cyanosis
Skin: Warm and Dry
Neuro: Awake, Alert and AO x 3
Psych: Calm
Results
WBC 6.1 10^3/uL (4.8-10.8) 06/11/24 05:12
Hgb 13.8 g/dL (13.0-18.0) 06/11/24 05:12
Hct 37.7 % (39.0-52.0) L 06/11/24 05:12
MCV 87.9 fL (80.0-94.0) 06/11/24 05:12
Plt Count 94 10^3/uL (130-400) L 06/11/24 05:12
Absolute Neuts (auto) 6.9 10^3/uL (1.4-6.5) H 06/07/24 13:07
Sodium 134 mmol/L (135-145) L 06/11/24 05:12
Potassium 4.4 mmol/L (3.5-5.1) 06/11/24 05:12
Chloride 100 mmol/L (98-107) 06/11/24 05:12
Carbon Dioxide 26 mmol/L (22-30) 06/11/24 05:12
BUN 16 mg/dl (9-20) 06/11/24 05:12
Creatinine 0.5 mg/dL (0.7-1.3) L 06/11/24 05:12
Calcium 8.1 mg/dl (8.4-10.2) L 06/11/24 05:12
Total Bilirubin 1.5 mg/dl (0.2-1.3) H 06/08/24 06:25
AST 37 U/L (17-59) 06/08/24 06:25
ALT 47 U/L (0-50) 06/08/24 06:25
Alkaline Phosphatase 74 U/L (38-126) 06/08/24 06:25
Diagnostic Image Results:
06/08/24 MR Lumbar W/o & With Contrast
1. ACUTE INFECTIOUS DISCITIS at L3/L4 with adjacent acute osteomyelitis in the vertebral body endplates and mild right-sided paraspinal soft tissue edema. Acute discogenic degenerative disease is an alternative diagnostic possibility.
2. Mild central canal stenosis and moderate bilateral neural foraminal narrowing at L3/L4.
3. MODERATE CENTRAL CANAL STENOSIS and SEVERE BILATERAL LATERAL RECESS STENOSIS at L4/L5 secondary to 3 mm grade 1 anterolisthesis and a small central disc herniation.
4. Small central disc herniation at L5/S1.
5. 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
Prior GI Procedures:
EGD: none
Colonoscopy: 24 years ago for rectal bleeding
Assessment / Plan
-
Pt is a 58yo with hx LUTHER, newly diagnosed T2DM with onset of worsening low back pain and concern for discitis with osteomyelitis on imaging. He has been seen by ID and also noted with strep bovis bacteremia. GALINA pending but asked to see for
colonoscopy to rule out GI source of step bovis bacteremia. Labs otherwise notable for hbg 13.8, platelets 94,000, Na 134, glucose 100-200 range with hbg A1c 10.7, CRP 173 and mild bili elevation of 2.3 on admission. No current GI complaints.
No prior EGD and hx colonoscopy 24 years ago for rectal bleeding. Did not recall any abnormalities.
-strep bovis bacteremia
-mild bili elevation on admission
-fever on admission
-back pain with concern for discitis/osteomyelitis with elevated CRP and ESR
-lumbar stenosis on imaging
-newly diagnosed DM type 2 with elevated hbg A1C on admission
-hx LUTHER
-thrombocytopenia
PLAN:
With noted step bovis bacteremia reviewed with patient correlation with colorectal cancers
will need eventual colonoscopy -IP vs OP - will review timing with Dr. Mosley as will need 6 weeks IV abx on discharge -- no current GI symptoms
repeat LFT's with mild elevation of bili on admission. Will repeat to ensure normalize as hepatobiliary also can be source of bacteremia
if continued elevation consider liver imaging
some thrombocytopenia related to infection vs other cont to trend
add INR, albumin normal
echo pending
glucose control with new diabetes on admission
family updated on imaging
-
-
Thank you for consultation and allowing me to participate in the patient's care. Please call the retail operations specialist GI physician during the after hours with any questions or concerns.
[2024-06-11] MEDS: ROCEPHIN 2000 MG IV (16:30)
[2024-06-11] MEDS: STERILE WATER FOR INJECTION 20 ML IV (16:31)
[2024-06-11 16:58] LABS: ALT (SGPT) 39 U/L (0-50); AST (SGOT) 49 U/L (17-59); Albumin 2.9 g/dl (3.5-5.0); Alkaline Phosphatase 71 U/L (38-126); Direct Bilirubin 0.5 mg/dl (0.0-0.4); Total Bilirubin 1.2 mg/dl (0.2-1.3); Total Protein 5.5 g/dl (6.3-8.2)
[2024-06-11 17:34] LABS: Glucose - Point of Care 137 mg/dl (70-99)
[2024-06-11] MEDS: LOVENOX 40 MG SC (17:36)
--- NOTE | 2024-06-11 18:08 | CON.CAR ---
Consultation
Consultation Request
Date/Time Consultation Requested: 06/11/24
Date/Time Consultation Performed: 06/11/24
Requesting Provider: Dr Riggs
Performing Provider: Dr Zurita
Reason for Consultation: possible endocarditis
Medical History
-
Chief Complaint: back pain
History of Present Illness:
58-year-old gent with a past medical history of LISE and newly diagnosed diabetes presenting for back pain found to have suspected acute infectious discitis and vertebral osteomyelitis. He had persistent bacteremia found to have strep bovis. TTE
was ordered today. It suggested possible vegetation on the anterior leaflet of the mitral valve however no significant regurgitation was seen. GALINA recommended for better assessment. Currently he is without complaint. He denies any issues with
swallowing. He is agreeable to the procedure.
Past Medical History
Past Medical History: NIDDM and Other (lise)
Social History
Tobacco: Other (zin pack )
Alcohol: None
Personal:
Living: With Family
Employment: Employed
Family History
Family History: Other (not pertinent)
Allergies / Home Medications
Allergy/AdvReac Type Severity Reaction Status Date / Time
No Known Allergies Allergy Unverified 07/18/16 15:43
�Medication �Instructions �Recorded �Confirmed �Type
ibuprofen 200 mg tablet (Advil) 400 mg PO Q8HPRN PRN mild pain 06/07/24 06/07/24 History
menthol 5 % topical patch (Icy Hot 1 patch topical HSPRN PRN sacral 06/07/24 06/07/24 History
(menthol)) area pain
blood sugar diagnostic (OneTouch #100 ea 06/11/24 Rx
Verio test strips)
blood-glucose meter (OneTouch #1 ea 06/11/24 Rx
Verio Flex Meter)
lancets 30 gauge (Onetouch Delica #100 ea 06/11/24 Rx
Safety Lancet)
pen needle, diabetic 32 gauge x #100 ea 06/11/24 Rx
5/32' (Sherice 2nd Gen Pen Needle)
Review of Systems
-
All other systems: Negative unless noted
Physical Exam
Vital Signs
Temp Pulse Resp BP Pulse Ox
98.4 F 84 16 137/84 95
06/11/24 15:44 06/11/24 15:44 06/11/24 15:44 06/11/24 15:44 06/11/24 15:44
Lab Results
06/11/24 05:12
06/11/24 05:12
Physical Exam
General: Well Developed, Well Nourished, No Apparent Distress and Comfortable
Respiratory: Clear; Negative Wheezes, Crackles or Rhonchi
Cardiac: S1/S2 and Regular Rhythm; Negative Murmur, Rub or Peripheral Edema
Musculoskeletal: No Clubbing
Impression / Plan
-
Possible endocarditis: Strep bovis bacteremia, possible vegetation seen on the anterior leaflet of the mitral valve.
-Findings discussed with patient, he is agreeable to GALINA
-N.p.o. after midnight for GALINA in the morning.
Strep bovis bacteremia as per ID
Possible infectious discitisCare as per medicine
Diabetes type 2: On sliding scale insulin, Lantus, continue metformin
LISE: Chronic
Data:
TTE 06/11/24
CONCLUSIONS
-Left ventricular ejection fraction is 65-70%, by visual assessment. Normal
regional wall motion.
-Normal right ventricular size and function.
-There is an 1.0 cm echodense structure on the anterior leaflet of mitral
valve, suspicious for a vegetation. The posterior mitral valve appears to be
restricted, but there does not appear to be any significant mitral stenosis.
Recommend GALINA for better assessment.
No prior study available for comparison.
Data Reviewed
-
EKG: Tracing Personally Visualized and interpreted (Sinus tachycardia left axis deviation)
Medical Tests (Nuc Med, Echo etc): Report Reviewed by me (Echo see above) and Discussed with Family ( at the bedside)
[2024-06-11 22:09] LABS: Glucose - Point of Care 147 mg/dl (70-99)
[2024-06-11] MEDS: LANTUS 0.07 UNITS SC (22:10)
[2024-06-11 23:21] VITALS: BP 149/85
[2024-06-12] MEDS: TORADOL 10 MG IV ×2 (05:21→12:42)
[2024-06-12 05:30] LABS: Glucose - Point of Care 95 mg/dl (70-99)
[2024-06-12 05:40] LABS: Hematocrit 37.2 % (39.0-52.0); Hemoglobin 13.5 g/dL (13.0-18.0); Mean Corp Hgb Conc. 36.3 g/dL (33.0-37.0); Mean Corpuscular Volume 88.2 fL (80.0-94.0); Platelet Count 109 10^3/uL (130-400); Red Blood Cell Count 4.22 10^6/uL (4.70-6.10); Red Cell Dist. Width 12.2 % (11.5-14.5); White Blood Cell Count 5.4 10^3/uL (4.8-10.8)
[2024-06-12 05:42] LABS: INR 1.21; PT 15.6 Sec (11.4-14.6)
[2024-06-12 06:00] LABS: Blood Urea Nitrogen 16 mg/dl (9-20); Calcium 8.4 mg/dl (8.4-10.2); Carbon Dioxide 26 mmol/L (22-30); Chloride 105 mmol/L (98-107); Estimated Creatinine Clearance > 125 ml/min; Glucose 107 mg/dl (70-99); Potassium 4.7 mmol/L (3.5-5.1); Sodium 137 mmol/L (135-145); eGFR > 60.00
[2024-06-12 07:20] VITALS: BP 144/81
[2024-06-12 07:23] LABS: Glucose - Point of Care 119 mg/dl (70-99)
[2024-06-12] MEDS: NEURONTIN 200 MG PO ×3 (07:59→21:46)
[2024-06-12] MEDS: PROTONIX 40 MG PO (07:59)
[2024-06-12] MEDS: GLUCOTROL 5 MG PO ×2 (07:59→16:49)
[2024-06-12] MEDS: LIDOCAINE 4% PATCH TOPICAL (07:59)
[2024-06-12] MEDS: GLUCOPHAGE 500 MG PO ×2 (07:59→16:49)
--- NOTE | 2024-06-12 08:37 | W.PN.HOSP.TC ---
Today's Communication/Plan
-
GALINA. IV antibiotics.
Assessment / Plan
Assessment / Plan
Physical exam:
General: Well Developed, Well Nourished and No Apparent Distress
HEENT: Normocephalic, Atraumatic and Moist Mucous Membranes
Respiratory: Clear to Auscultation; Negative Wheezes, Rales or Rhonchi
Cardiac: Regular Rhythm and S1/S2
GI: Soft, Nontender and Nondistended
Musculoskeletal: No Clubbing, No Cyanosis and No Edema. No midline tenderness. Tenderness usually upon movement per patient report
Neuro: Awake, Alert and Oriented, no gross neurological deficits
Psych: Calm
A/P:
Bacteremia suspected due to acute lumbar discitis:
Continue IV antibiotic, IV ceftriaxone
MRI lumbar spine L3-L4 suspected discitis
Blood culture Streptococcus bovis in 06/08
GI consulted given correlation with GI malignancy and will defer to GI as to the timing for colonoscopy
No growth from blood cultures on 06/09
Discussed with at bedside today
Discussed with ID in person today
ID ordered TTE and it came back abnormal with possible vegetations but cardiology consulted and GALINA was done and it turned out to be mitral valve calcifications.
Discharge planning once cleared by ID
Diabetes mellitus type 2:
Continue insulin sliding scale
Continue metformin
[employer] diabetic eval appreciated
Continue on lantus
Acute on chronic lower back pain:
Pain control
LUTHER:
Continue current management
DVT prophylaxis:
Lovenox SQ
CODE STATUS:
Full code
Total time spent on today's encounter was 52 minutes which included time spent in counseling the patient/family regarding diagnosis and treatment plan as listed above, goals of care, and symptom management. Case was discussed with nursing staff,
specialists, and care coordinators/case management. All labs and imaging personally reviewed by me. Remainder the time spent in detailed review of previous records, lab data, imaging, and other medical provider documentation.
Anticipated Discharge: 24 - 48 hours
Subjective/Interval History
-
Date of Service: June 12, 2024
Patient with some back discomfort. Afebrile. No chest pain or shortness of breath
Objective Data
-
Labs:
Laboratory Results
06/12/24
05:08
WBC 5.4
Hgb 13.5
Hct 37.2 L
Plt Count 109 L
PT 15.6 H
INR 1.21
Sodium 137
Potassium 4.7
Chloride 105
Carbon Dioxide 26
BUN 16
Creatinine 0.5 L
Glucose 107 H
Calcium 8.4
Vital Signs:
Vital Signs
Temp Pulse Resp BP Pulse Ox
98.6 F 82 18 144/81 96
06/12/24 07:20 06/12/24 07:20 06/12/24 07:20 06/12/24 07:20 06/12/24 07:20
I&O
06/11/24 06/12/24 06/13/24
06:59 06:59 06:59
Intake Total 1920 / 1920 1330 / 1330
Output Total 300 / 300 1600 / 1600
Balance 1620 / 1620 -270 / -270
--- NOTE | 2024-06-12 10:18 | PN.DE.MGMTRT ---
Insulin Management
- -
06/12/2024: Diabetes Management Follow up
58 year old male with PMH: LUTHER and newly diagnosed T2DM, presented to the ED for further evaluation of intractable low back pain that has been going on for the past several days since Monday however over the past 3 days has become so severe and is
unable to ambulate currently. Patient described it as low back spasms that were so severe he could not get up out of bed. Also reports h/o sciatica x20 years. MRI lumbar spine-->L3/L4 lumbar disc disease, with suspected acute infectious discitis and
vertebral osteomyelitis. Glucose on admission was 253, his fasting blood sugar range has been 206 to 320. Current diabetes regimen includes Metformin 500mg BID and moderate corrective insulin with meals only. A1C 10.7%, Cr 0.6, eGFR >60
Pt awake, alert, oriented, sitting up in bed, offers no complaints, able to discuss diabetes care plan. SO- Debbi at bedside, all questions answered.
HS Lantus dose was reduced to 7 units last night, FBG 107 V, 95 POC, will cont same dose tonight- Lantus 7 units.
06/11 Premeal glucose range 111 to 137, Will cont Glipizide 5mg BID and Metformin 500mg BID.
Will cont to follow and adjust medications if necessary.
Pt's insurance prefers OneTouch glucose monitor, Rx sent to his pharmacy, instructed SO to bring it in tomorrow to review with Diabetes Nurse Educator and reinforce monitor education.
Diabetes History
- -
Type of Diabetes: 2 requiring insulin
Pre-Admission Diabetes Regimen
06/11/24 06/12/24
05:12 05:08
Creatinine 0.5 L 0.5 L
Lab Results
Hemoglobin A1c 10.7 % (4.0-5.6) H 06/08/24 06:25
Insulin Pump Settings
IP Diabetes Regimen
06/11/24 06/11/24 06/11/24
05:12 12:12 17:33
Glucose 123 H
POC Glucose 111 H 137 H
06/11/24 06/12/24 06/12/24
22:08 05:08 05:28
Glucose 107 H
POC Glucose 147 H 95
06/12/24
07:22
Glucose
POC Glucose 119 H
Meal type: Dinner
Meal type: Lunch
Meal type: Breakfast
Amount consumed: 100%
Amount consumed: 85%
Amount consumed: 85%
Patient Education
--- NOTE | 2024-06-12 10:22 | W.PN.CD ---
Today's Communication / Plan
-
-GALINA this a.m. negative for endocarditis; there was just some calcification of his papillary muscle chordal attachment to the mitral valve--no vegetation.
Impression / Plan
-
Strep bovis bacteremia/discitis:
-GALINA this a.m. negative for endocarditis; there was just some calcification of his papillary muscle chordal attachment to the mitral valve--no vegetation.
-Management as per ID.
Diabetes type 2:
-On Lantus and metformin.
-Management as per primary team.
LUTHER: Chronic
Physical Exam
Vital Signs/Labs
Vital Signs
Temp Pulse Resp BP Pulse Ox
98.6 F 82 18 144/81 96
06/12/24 07:20 06/12/24 07:20 06/12/24 07:20 06/12/24 07:20 06/12/24 07:20
06/12/24 05:08
06/12/24 05:08
PT 15.6 Sec (11.4-14.6) H 06/12/24 05:08
INR 1.21 06/12/24 05:08
Magnesium 2.0 mg/dl (1.6-2.3) 06/10/24 05:09
Triglycerides 122 mg/dl (10-149) 06/08/24 06:25
LDL Cholesterol, Calc 61 mg/dl 06/08/24 06:25
VLDL Cholesterol, Calc 24 mg/dl (0-30) 06/08/24 06:25
HDL Cholesterol 30 mg/dl 06/08/24 06:25
TSH 1.40 uIU/ml (0.47-4.68) 06/08/24 06:25
Physical Exam
Constitutional: No acute distress and Comfortable
EENT: Anicteric and Moist mucous membranes
Cardiovascular: Rhythm & rate is regular, Pedal edema is absent, Systolic murmur absent and S1S2 is normal
Respiratory: Respiratory effort normal and Lungs clear to auscul.
GI: Soft and Non tender
Neuro/Psych: AO x 3
Other: Skin (Warm, dry, intact)
Data Reviewed
-
Date of Service: June 12, 2024
EKG: Tracing Personally Visualized and interpreted (Sinus rhythm)
Echo: Tracing Personally Visualized and interpreted (GALINA: No vegetation.)
Medical Tests (PFT, Pathology etc): Discussed with Physician (Primary Hospitalist, ID, GI)
Labs: Labs Reviewed by me
--- NOTE | 2024-06-12 10:52 | CM ---
Spoke with at bedside.
PT indicated VN . She agreed with [facility] .
Pt will be home infusion . Reviewed process with . She agreed with [facility].
spoke with [facility] . Clinical faxed to [phone] to start dc plan.
PLAn Home with IV antibiotics with [facility] and Pt with [facility] fax [phone]
[2024-06-12 11:43] LABS: Glucose - Point of Care 106 mg/dl (70-99)
--- NOTE | 2024-06-12 13:58 | PTCARENOTE ---
06/12/2024 DIABETES EDUCATION
I met with Flako to reinforce self monitoring of glucose and insulin injections. He states he feels very comfortable with both, denies additional education needs.
--- NOTE | 2024-06-12 14:49 | W.PN.ID1 ---
Date of Service
Date of Service: June 12, 2024
Today's Communication
Continue antibiotics.
Assessment / Plan
Low back pain
L3/L4 lumbar disc disease, with suspected acute infectious discitis and vertebral osteomyelitis
Streptococcal bacteremia
Fever
Elevated procalcitonin
Elevated ESR, CRP
Diabetes mellitus (uncontrolled; HbA1c = 10.7)
Hx LUTHER
Recommendations:
Blood cultures positive for Strep bovis.
Continue ceftriaxone 2 g IV every 24 hours.
- Patient will require 6 weeks of therapy.
- PICC line when rpt blood cultures negative x48-72 hours.
- Home infusion sheet given to Case Management.
Patient has been evaluated by Gastroenterology.
Follow white count and temperature curve.
Tight glucose control.
����������������������������������������������������������
Chief Complaint
-: Fever, Bacteremia and Other (L3-4 discitis)
Subjective / Review of Systems
Review of Systems: No Fever and No Chills
Vital Signs / Physical Exam
Vital Signs
Vital Signs
Temp Pulse Resp BP Pulse Ox
98.6 F 82 18 144/81 96
06/12/24 07:20 06/12/24 07:20 06/12/24 07:20 06/12/24 07:20 06/12/24 11:16
Physical Exam
Constitutional: No Acute Distress, Comfortable and Non-toxic
Eyes: No Conjunctival Hemorrhage
Cardiovascular: S1/S2; Negative S3/S4 or Murmur
Pulmonary: Non Labored
Extremities: Negative Splinter Hemorrhage or Janeway Lesions
Neurological: Awake and Alert
Psychological: Calm
Objective Data
Lab Data
Lab Results
06/12/24 05:08
06/12/24 05:08
ESR 42 mm/hour (0-20) H 06/09/24 05:48
PT 15.6 Sec (11.4-14.6) H 06/12/24 05:08
INR 1.21 06/12/24 05:08
Estimated Creat Clear > 125 ml/min 06/12/24 05:08
Lactic Acid 1.7 mmol/L (0.7-2.0) 06/09/24 01:55
Total Bilirubin 1.2 mg/dl (0.2-1.3) 06/11/24 05:12
AST 49 U/L (17-59) 06/11/24 05:12
ALT 39 U/L (0-50) 06/11/24 05:12
Alkaline Phosphatase 71 U/L (38-126) 06/11/24 05:12
C-Reactive Protein 173.10 mg/L (0.0-10.00) H 06/09/24 05:48
Most recent labs reviewed.
Micro Results:
06/09/24 06:21 Blood Culture - Preliminary
Blood/Venous No Growth in 72 hours- Final report to follow
06/09/24 05:48 Blood Culture - Preliminary
Blood/Venous No Growth in 72 hours- Final report to follow
06/08/24 12:58 Blood Culture - Final
Blood/Venous Streptococcus bovis
Gram Stain - Final
06/08/24 12:25 Blood Culture - Final
Blood/Venous Streptococcus bovis
Gram Stain - Final
06/08/24 13:26 Urine Culture - Final
Urine
Blood Culture Final 06/08/24
Streptococcus bovis group
Organism 1 Streptococcus bovis
1. Streptococcus bovis
M.I.C. RX
--------- ---
Azithromycin <=0.5 S
Ceftriaxone <=1 S
Clindamycin <=0.06 S
Levofloxacin <=0.5 S
Penicillin G 0.06 S
Tetracycline <=0.5 S
Vancomycin 0.5 S
Imaging:
06/08/24 MRI lumbar: There is a moderate amount of fluid signal intensity in the L3/L4 intervertebral disc. There is mild loss of intervertebral disc space height. There is a moderate amount of adjacent right-sided low T1 and high T2/FLAIR signal
intensity enhancing bone marrow edema. There is also a mild amount of adjacent right-sided paraspinal soft tissue edema demonstrating postcontrast enhancement. No MRI evidence for paraspinal or epidural fluid collection to suggest an abscess.
Overall findings are suspicious for acute infectious discitis at L3/L4 with adjacent acute osteomyelitis. Acute discogenic degenerative disc disease is an alternative diagnostic possibility. Please see full dictation for additional detail.
Echocardiogram: Report Reviewed and Discussed w/ Cardiology
[2024-06-12 15:31] VITALS: BP 143/87
--- NOTE | 2024-06-12 16:07 | W.PN.GI.CBS2 ---
Today's Communication / Plan
-
-- gave appt for outpt colonoscopy on 06/27
Assessment / Plan
-
Pt is a 58yo with hx LUTHER, newly diagnosed T2DM with onset of worsening low back pain and concern for discitis with osteomyelitis on imaging. He has been seen by ID and also noted with strep bovis bacteremia. GALINA pending but asked to see for
colonoscopy to rule out GI source of step bovis bacteremia. Labs otherwise notable for hbg 13.8, platelets 94,000, Na 134, glucose 100-200 range with hbg A1c 10.7, CRP 173 and mild bili elevation of 2.3 on admission. No current GI complaints.
No prior EGD and hx colonoscopy 24 years ago for rectal bleeding. Did not recall any abnormalities.
GALINA today 06/12 was negative for vegetation
-strep bovis bacteremia
-mild bili elevation on admission
-fever on admission
-back pain with concern for discitis/osteomyelitis with elevated CRP and ESR
-lumbar stenosis on imaging
-newly diagnosed DM type 2 with elevated hbg A1C on admission
-hx LUTHER
-thrombocytopenia
Patient denies all GI symptoms, no dysphagia, heartburn, nausea, vomiting, abdominal pain, diarrhea, constipation has 1 brown formed stool daily. No anemia
PLAN:
noted step bovis bacteremia with discitis and reviewed with patient correlation with colorectal cancers
Gave Patient an appointment on 06/27/2024 for colonoscopy with ca outpatient -I did send his prep to his [facility] already and we will comply with instructions for him prior to discharge
His last colonoscopy was over 20 years ago. If this colonoscopy is negative repeat is suggested 4 to 6 months later due to such a high correlation with colorectal cancer
Subjective
Subjective
Date of Service: June 12, 2024
Patient denies any GI symptoms. Last colonoscopy over 20 years ago
Objective
Data Reviewed
Laboratory Data:
Laboratory Results
06/12/24 05:08
06/12/24 05:08
Laboratory Results
PT 15.6 Sec (11.4-14.6) H 06/12/24 05:08
INR 1.21 06/12/24 05:08
Phosphorus 2.7 mg/dl (2.5-4.5) 06/10/24 05:09
Magnesium 2.0 mg/dl (1.6-2.3) 06/10/24 05:09
Total Bilirubin 1.2 mg/dl (0.2-1.3) 06/11/24 05:12
AST 49 U/L (17-59) 06/11/24 05:12
ALT 39 U/L (0-50) 06/11/24 05:12
Alkaline Phosphatase 71 U/L (38-126) 06/11/24 05:12
Vital Signs and I&O:
Vital Signs
Temp Pulse Resp BP Pulse Ox
98.9 F 81 18 143/87 95
06/12/24 15:31 06/12/24 15:31 06/12/24 15:31 06/12/24 15:31 06/12/24 15:31
I&O
06/11/24 06/12/24 06/13/24
06:59 06:59 06:59
Intake Total 1920 / 1920 1330 / 1330
Output Total 300 / 300 1600 / 1600
Balance 1620 / 1620 -270 / -270
Physical Exam
Physical Exam
HEENT: Anicteric
Cardiology: Normal Sinus Rhythm
Pulmonary: Clear
GI: Soft, Non Distended and Non Tender
Extremities: No Edema
Neuro: Non Focal
[2024-06-12 16:40] LABS: Glucose - Point of Care 106 mg/dl (70-99)
[2024-06-12] MEDS: ROCEPHIN 2000 MG IV (16:48)
[2024-06-12] MEDS: STERILE WATER FOR INJECTION 20 ML IV (16:48)
[2024-06-12] MEDS: LOVENOX 40 MG SC (17:28)
[2024-06-12] MEDS: DILAUDID 0.5 MG IV (19:23)
[2024-06-12] MEDS: TYLENOL 1000 MG PO (20:01)
[2024-06-12 21:33] LABS: Glucose - Point of Care 101 mg/dl (70-99)
[2024-06-12] MEDS: LANTUS 0.07 UNITS SC (21:46)
[2024-06-12] MEDS: ULTRAM 50 MG PO (21:51)
[2024-06-12] MEDS: FLEXERIL 5 MG PO (21:52)
[2024-06-12 23:00] VITALS: BP 125/79
[2024-06-13] MEDS: TYLENOL 1000 MG PO ×3 (03:50→20:10)
[2024-06-13 06:39] LABS: Hematocrit 38.7 % (39.0-52.0); Hemoglobin 13.7 g/dL (13.0-18.0); Mean Corp Hgb Conc. 35.4 g/dL (33.0-37.0); Mean Corpuscular Hgb 31.9 pg (27.0-31.0); Mean Platelet Volume 10.1 fL (7.4-10.4); Platelet Count 136 10^3/uL (130-400); Red Cell Dist. Width 12.5 % (11.5-14.5); White Blood Cell Count 5.5 10^3/uL (4.8-10.8)
[2024-06-13 06:54] LABS: Blood Urea Nitrogen 16 mg/dl (9-20); Calcium 8.8 mg/dl (8.4-10.2); Carbon Dioxide 26 mmol/L (22-30); Chloride 104 mmol/L (98-107); Estimated Creatinine Clearance > 125 ml/min; Glucose 71 mg/dl (70-99); Potassium 4.4 mmol/L (3.5-5.1); Sodium 138 mmol/L (135-145); eGFR > 60.00
[2024-06-13 07:25] VITALS: BP 146/75
[2024-06-13 07:32] LABS: Glucose - Point of Care 90 mg/dl (70-99)
[2024-06-13] MEDS: NOVOLOG FLEXPEN-MODERATE RESISTANCE SC ×2 (07:34→17:06)
[2024-06-13] MEDS: NEURONTIN 200 MG PO ×3 (08:38→21:45)
[2024-06-13] MEDS: LIDOCAINE 4% PATCH 2 PATCH TOPICAL (08:38)
[2024-06-13] MEDS: GLUCOTROL 5 MG PO ×2 (08:39→17:05)
[2024-06-13] MEDS: GLUCOPHAGE 500 MG PO ×2 (08:39→17:05)
[2024-06-13] MEDS: PROTONIX 40 MG PO (08:39)
[2024-06-13] MEDS: ULTRAM 50 MG PO (08:43)
--- NOTE | 2024-06-13 08:51 | W.PN.HOSP.TC ---
Today's Communication/Plan
-
IV antibiotics. Pain control. Discharge planning
Assessment / Plan
Assessment / Plan
Physical exam:
General: Well Developed, Well Nourished and No Apparent Distress
HEENT: Normocephalic, Atraumatic and Moist Mucous Membranes
Respiratory: Clear to Auscultation; Negative Wheezes, Rales or Rhonchi
Cardiac: Regular Rhythm and S1/S2
GI: Soft, Nontender and Nondistended
Musculoskeletal: No Clubbing, No Cyanosis and No Edema. No midline tenderness. Tenderness usually upon movement per patient report
Neuro: Awake, Alert and Oriented, no gross neurological deficits
Psych: Calm
A/P:
Bacteremia suspected due to acute lumbar discitis:
Continue IV antibiotic, IV ceftriaxone
MRI lumbar spine L3-L4 suspected discitis
Blood culture Streptococcus bovis in 06/08
GI consulted given correlation with GI malignancy and will defer to GI as to the timing for colonoscopy
No growth from blood cultures on 06/09
Discussed with at bedside yesterday
Discussed with ID in person yesterday
ID ordered TTE and it came back abnormal with possible vegetations but cardiology consulted and GALINA was done and it turned out to be mitral valve calcifications.
Discharge planning once cleared by ID
PT OT eval
Will change pain medications-continue Tylenol and ibuprofen for mild, continue Lidoderm patch, continue gabapentin, continue Flexeril, change tramadol to oxycodone 5 mg for moderate and 10 mg for severe.
Continue bowel regimen while on narcotics
Plan for PICC line for long-term antibiotics
Diabetes mellitus type 2:
Continue insulin sliding scale
Continue metformin
ACCOUNTANT ASSISTANT diabetic eval appreciated
Lantus on and off so will determine over the next 24 hrs.
Acute on chronic lower back pain:
Pain control
LUTHER:
Continue current management
DVT prophylaxis:
Lovenox SQ
CODE STATUS:
Full code
Anticipated Discharge: Within 24 hours
Subjective/Interval History
-
Date of Service: June 13, 2024
Patient states pain is not well-controlled. Afebrile
Objective Data
-
Labs:
Laboratory Results
06/13/24
05:00
WBC 5.5
Hgb 13.7
Hct 38.7 L
Plt Count 136 D
Sodium 138
Potassium 4.4
Chloride 104
Carbon Dioxide 26
BUN 16
Creatinine 0.6 L
Glucose 71
Calcium 8.8
Vital Signs:
Vital Signs
Temp Pulse Resp BP Pulse Ox
97.7 F 65 14 146/75 97
06/13/24 07:25 06/13/24 07:25 06/13/24 07:25 06/13/24 07:25 06/13/24 07:25
I&O
06/12/24 06/13/24 06/14/24
06:59 06:59 06:59
Intake Total 1330 / 1330 1800 / 1800
Output Total 1600 / 1600 1200 / 1200
Balance -270 / -270 600 / 600
[2024-06-13 09:03] VITALS: BP 146/82; PULSE 76; O2SAT 98
--- NOTE | 2024-06-13 09:04 | PN.DE.MGMTRT ---
Insulin Management
- -
06/13/2024: Diabetes Management Follow up
58 year old male with PMH: LUTHER and newly diagnosed T2DM, presented to the ED for further evaluation of intractable low back pain that has been going on for the past several days since Monday however over the past 3 days has become so severe and is
unable to ambulate currently. Patient described it as low back spasms that were so severe he could not get up out of bed. Also reports h/o sciatica x20 years. MRI lumbar spine-->L3/L4 lumbar disc disease, with suspected acute infectious discitis and
vertebral osteomyelitis. Glucose on admission was 253, his fasting blood sugar range has been 206 to 320. Current diabetes regimen includes Metformin 500mg BID and moderate corrective insulin with meals only. A1C 10.7%, Cr 0.6, eGFR >60
Pt awake, alert, oriented, sitting up in bed, offers no complaints, able to discuss diabetes care plan.
HS Lantus dose was reduced to 7 units last night, FBG 71 V, 90 POC, will HOLD Lantus dose for tonight with plans to discontinue it altogether.
06/12 Premeal glucose range 106 to 119, Will cont Glipizide 5mg BID and Metformin 500mg BID.
Will cont to follow and adjust medications if necessary.
Pt's insurance will cover OneTouch glucose monitor, Rx sent to his pharmacy, instructed SO to bring it in tomorrow to review with Diabetes Nurse Educator and reinforce monitor education.
Diabetes History
- -
Type of Diabetes: 2 requiring insulin
Pre-Admission Diabetes Regimen
06/13/24
05:00
Creatinine 0.6 L
Lab Results
Hemoglobin A1c 10.7 % (4.0-5.6) H 06/08/24 06:25
Insulin Pump Settings
IP Diabetes Regimen
06/12/24 06/12/24 06/12/24
11:40 16:38 21:32
Glucose
POC Glucose 106 H 106 H 101 H
06/13/24 06/13/24
05:00 07:31
Glucose 71
POC Glucose 90
Meal type: Lunch
Amount consumed: 100%
Patient Education
[2024-06-13] MEDS: ROXICODONE 5 MG PO (11:44)
[2024-06-13 11:52] LABS: Glucose - Point of Care 153 mg/dl (70-99)
--- NOTE | 2024-06-13 14:09 | PTCARENOTE ---
Pt. in 4 point restraints this am for protective intervention. Psych at bedside to evaluate pt. and helped to assist in taking off restraints and attempting to ambulate pt. with walker. Pt. had difficult time going from laying to sitting in bed. Pt
able to ambulate from bed to doorway and back with a X1 assist and rolling walker, but is unsteady. Pt. now sitting in paulino-chair at nurses station without need for restraints, acting appropriately, but still confused. Will reassess need for
restraints when pt. returns to his room.
[2024-06-13] MEDS: NOVOLOG FLEXPEN-MODERATE RESISTANCE 1 UNITS SC (14:19)
--- NOTE | 2024-06-13 14:30 | W.PN.ID1 ---
Date of Service
Date of Service: June 13, 2024
Today's Communication
Continue antibiotics
Assessment / Plan
Low back pain
L3/L4 lumbar disc disease, with suspected acute infectious discitis and vertebral osteomyelitis
Strep bovis bacteremia
Fever
Elevated procalcitonin
Elevated ESR, CRP
Diabetes mellitus (uncontrolled; HbA1c = 10.7)
Hx LUTHER
Recommendations:
Blood cultures positive for Strep bovis.
Continue ceftriaxone 2 g IV every 24 hours.
- Patient will require 6 weeks of therapy.
- PICC placed.
- Home infusion sheet given to Case Management.
- Patient will be followed up in the office in 2 to 3 weeks.
Patient has been evaluated by Gastroenterology.
Follow white count and temperature curve.
Tight glucose control.
����������������������������������������������������������
Chief Complaint
-: Fever, Bacteremia and Other (L3-4 discitis)
Subjective / Review of Systems
Patient seen and examined. Still with some back pain. PICC line has been placed.
Review of Systems: No Fever and No Chills
Vital Signs / Physical Exam
Vital Signs
Vital Signs
Temp Pulse Resp BP Pulse Ox
97.7 F 65 14 146/75 97
06/13/24 07:25 06/13/24 07:25 06/13/24 07:25 06/13/24 07:25 06/13/24 07:25
Physical Exam
Constitutional: No Acute Distress, Comfortable and Non-toxic
Eyes: No Conjunctival Hemorrhage
Pulmonary: Clear and Non Labored
Gastrointestinal: Non Distended
Extremities: Negative Splinter Hemorrhage or Janeway Lesions
Neurological: Awake and Alert
Psychological: Calm
Lines: PICC (Right upper extremity)
Objective Data
Lab Data
Lab Results
06/13/24 05:00
06/13/24 05:00
ESR 42 mm/hour (0-20) H 06/09/24 05:48
PT 15.6 Sec (11.4-14.6) H 06/12/24 05:08
INR 1.21 06/12/24 05:08
Estimated Creat Clear > 125 ml/min 06/13/24 05:00
Lactic Acid 1.7 mmol/L (0.7-2.0) 06/09/24 01:55
Total Bilirubin 1.2 mg/dl (0.2-1.3) 06/11/24 05:12
AST 49 U/L (17-59) 06/11/24 05:12
ALT 39 U/L (0-50) 06/11/24 05:12
Alkaline Phosphatase 71 U/L (38-126) 06/11/24 05:12
C-Reactive Protein 173.10 mg/L (0.0-10.00) H 06/09/24 05:48
Most recent labs reviewed.
Micro Results:
06/09/24 06:21 Blood Culture - Preliminary
Blood/Venous No Growth in 4 days- Final report to follow
06/09/24 05:48 Blood Culture - Preliminary
Blood/Venous No Growth in 4 days- Final report to follow
06/08/24 12:58 Blood Culture - Final
Blood/Venous Streptococcus bovis
Gram Stain - Final
06/08/24 12:25 Blood Culture - Final
Blood/Venous Streptococcus bovis
Gram Stain - Final
06/08/24 13:26 Urine Culture - Final
Urine
Blood Culture Final 06/08/24
Streptococcus bovis group
Organism 1 Streptococcus bovis
1. Streptococcus bovis
M.I.C. RX
--------- ---
Azithromycin <=0.5 S
Ceftriaxone <=1 S
Clindamycin <=0.06 S
Levofloxacin <=0.5 S
Penicillin G 0.06 S
Tetracycline <=0.5 S
Vancomycin 0.5 S
Imaging:
06/08/24 MRI lumbar: There is a moderate amount of fluid signal intensity in the L3/L4 intervertebral disc. There is mild loss of intervertebral disc space height. There is a moderate amount of adjacent right-sided low T1 and high T2/FLAIR signal
intensity enhancing bone marrow edema. There is also a mild amount of adjacent right-sided paraspinal soft tissue edema demonstrating postcontrast enhancement. No MRI evidence for paraspinal or epidural fluid collection to suggest an abscess.
Overall findings are suspicious for acute infectious discitis at L3/L4 with adjacent acute osteomyelitis. Acute discogenic degenerative disc disease is an alternative diagnostic possibility. Please see full dictation for additional detail.
[2024-06-13 15:18] VITALS: BP 130/82
[2024-06-13 15:57] VITALS: BP 131/85; PULSE 79; O2SAT 99
[2024-06-13 16:48] LABS: Glucose - Point of Care 88 mg/dl (70-99)
[2024-06-13] MEDS: LOVENOX 40 MG SC (17:05)
[2024-06-13] MEDS: STERILE WATER FOR INJECTION 20 ML IV (17:06)
[2024-06-13] MEDS: ROCEPHIN 2000 MG IV (17:06)
--- NOTE | 2024-06-13 17:27 | CM ---
Spoke with pt and at bedside.
PT indicated VN . She agreed with Koko HENDERSON .Pt does not have PCP [facility] number given to to set up PCP .Pt notified that he will need to be seen by PCP before Koko HENDERSON will be able to strart VN.
Pt will be home infusion .
Spoke with [facility]. All clinical plus PICC and CXR faxed.
Home with IV antibiotics with [facility] and Pt with [facility] HENDERSON fax [phone]
[2024-06-13] MEDS: ROXICODONE 10 MG PO (17:30)
[2024-06-13 21:20] LABS: Glucose - Point of Care 99 mg/dl (70-99)
[2024-06-13 23:00] VITALS: BP 116/65
[2024-06-14 03:00] VITALS: BP 110/68
[2024-06-14] MEDS: TYLENOL 1000 MG PO ×2 (03:59→11:38)
[2024-06-14] MEDS: ROXICODONE 10 MG PO (04:03)
[2024-06-14 04:23] LABS: Hematocrit 37.9 % (39.0-52.0); Hemoglobin 13.2 g/dL (13.0-18.0); Mean Corp Hgb Conc. 34.8 g/dL (33.0-37.0); Mean Corpuscular Hgb 31.6 pg (27.0-31.0); Mean Corpuscular Volume 90.7 fL (80.0-94.0); Mean Platelet Volume 10.1 fL (7.4-10.4); Platelet Count 158 10^3/uL (130-400); Red Blood Cell Count 4.18 10^6/uL (4.70-6.10); Red Cell Dist. Width 12.6 % (11.5-14.5); White Blood Cell Count 5.3 10^3/uL (4.8-10.8)
[2024-06-14 04:45] LABS: Blood Urea Nitrogen 17 mg/dl (9-20); Calcium 8.7 mg/dl (8.4-10.2); Carbon Dioxide 27 mmol/L (22-30); Chloride 103 mmol/L (98-107); Estimated Creatinine Clearance > 125 ml/min; Glucose 108 mg/dl (70-99); Potassium 4.7 mmol/L (3.5-5.1); Sodium 138 mmol/L (135-145); eGFR > 60.00
[2024-06-14 07:26] VITALS: BP 143/71
[2024-06-14 07:31] LABS: Glucose - Point of Care 98 mg/dl (70-99)
[2024-06-14] MEDS: NOVOLOG FLEXPEN-MODERATE RESISTANCE SC ×2 (07:41→11:31)
[2024-06-14] MEDS: LIDOCAINE 4% PATCH TOPICAL (07:52)
[2024-06-14] MEDS: PROTONIX 40 MG PO (07:53)
[2024-06-14] MEDS: NEURONTIN 200 MG PO ×2 (07:53→15:03)
[2024-06-14] MEDS: GLUCOPHAGE 500 MG PO (07:53)
[2024-06-14] MEDS: GLUCOTROL 5 MG PO (07:53)
--- NOTE | 2024-06-14 08:53 | W.PN.HOSP.TC ---
Addendum entered and electronically signed by Capo Riggs MD 06/14/24 16:41:
Sepsis, POA
Original Note:
Today's Communication/Plan
-
Discharge planning today
Assessment / Plan
Assessment / Plan
Physical exam:
General: Well Developed, Well Nourished and No Apparent Distress
HEENT: Normocephalic, Atraumatic and Moist Mucous Membranes
Respiratory: Clear to Auscultation; Negative Wheezes, Rales or Rhonchi
Cardiac: Regular Rhythm and S1/S2
GI: Soft, Nontender and Nondistended
Musculoskeletal: No Clubbing, No Cyanosis and No Edema. No midline tenderness. Tenderness usually upon movement per patient report
Neuro: Awake, Alert and Oriented, no gross neurological deficits
Psych: Calm
A/P:
Bacteremia suspected due to acute lumbar discitis:
Continue IV antibiotic, IV ceftriaxone
MRI lumbar spine L3-L4 suspected discitis
Blood culture Streptococcus bovis in 06/08
GI consulted given correlation with GI malignancy and will defer to GI as to the timing for colonoscopy
No growth from blood cultures on 06/09
Discussed with at bedside prior
Discussed with ID in person prior
ID ordered TTE and it came back abnormal with possible vegetations but cardiology consulted and GALINA was done and it turned out to be mitral valve calcifications.
Discharge planning once cleared by ID
PT OT eval
Will change pain medications-continue Tylenol and ibuprofen for mild, continue Lidoderm patch, continue gabapentin, continue Flexeril, change tramadol to oxycodone 5 mg for moderate and 10 mg for severe.
Continue bowel regimen while on narcotics
PICC line for long-term antibiotics -done yesterday and adjusted and follow-up chest x-ray looks okay today.
Plan to discharge today
Diabetes mellitus type 2:
Continue insulin sliding scale
Continue metformin
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
Lantus on and off so will determine only oral hypoglycemics upon discharge
Acute on chronic lower back pain:
Pain control
LUTHER:
Continue current management
DVT prophylaxis:
Lovenox SQ
CODE STATUS:
Full code
Anticipated Discharge: Today
Subjective/Interval History
-
Date of Service: June 14, 2024
Patient pain improved substantially. Afebrile
Objective Data
-
Labs:
Laboratory Results
06/14/24
04:02
WBC 5.3
Hgb 13.2
Hct 37.9 L
Plt Count 158
Sodium 138
Potassium 4.7
Chloride 103
Carbon Dioxide 27
BUN 17
Creatinine 0.6 L
Glucose 108 H
Calcium 8.7
Vital Signs:
Vital Signs
Temp Pulse Resp BP Pulse Ox
97.8 F 72 14 143/71 99
06/14/24 07:26 06/14/24 07:26 06/14/24 07:26 06/14/24 07:26 06/14/24 07:26
I&O
06/13/24 06/14/24 06/15/24
06:59 06:59 06:59
Intake Total 1800 / 1800 1440 / 1440
Output Total 1200 / 1200 700 / 700
Balance 600 / 600 740 / 740
--- NOTE | 2024-06-14 10:15 | PN.DE.MGMTRT ---
Insulin Management
- -
06/14/2024: Diabetes Management Follow up
58 year old male with PMH: LUTHER and newly diagnosed T2DM, presented to the ED for further evaluation of intractable low back pain that has been going on for the past several days since Monday however over the past 3 days has become so severe and is
unable to ambulate currently. Patient described it as low back spasms that were so severe he could not get up out of bed. Also reports h/o sciatica x20 years. MRI lumbar spine-->L3/L4 lumbar disc disease, with suspected acute infectious discitis and
vertebral osteomyelitis. Glucose on admission was 253, his fasting blood sugar range has been 206 to 320. Current diabetes regimen includes Metformin 500mg BID and moderate corrective insulin with meals only. A1C 10.7%, Cr 0.6, eGFR >60
Pt awake, alert, oriented, sitting up in bed, offers no complaints, able to discuss diabetes care plan.
HS Lantus dose was Held last night due to low normal blood sugars throughout the day. FBG 108 V, 98 POC, will discontinue Lantus altogether.
06/13 Premeal glucose range 88 to 153, Will cont Glipizide 5mg BID and Metformin 500mg BID.
Will cont to follow and adjust medications if necessary.
Pt had follow up visit with Diabetes Nurse Educator and reviewed instructions for cover OneTouch glucose monitor. Pt's SO already picked up Rx from pharmacy and pt has it at bedside.
Meds at discharge: Glipizide 5mg BID and Metformin 500mg BID.
Diabetes History
- -
Type of Diabetes: 2
Pre-Admission Diabetes Regimen
06/14/24
04:02
Creatinine 0.6 L
Lab Results
Hemoglobin A1c 10.7 % (4.0-5.6) H 06/08/24 06:25
Insulin Pump Settings
IP Diabetes Regimen
06/13/24 06/13/24 06/13/24
11:45 16:46 21:19
Glucose
POC Glucose 153 H 88 99
06/14/24 06/14/24
04:02 07:30
Glucose 108 H
POC Glucose 98
Patient Education
[2024-06-14 11:29] LABS: Glucose - Point of Care 127 mg/dl (70-99)
--- NOTE | 2024-06-14 11:46 | W.PN.ID1 ---
Date of Service
Date of Service: June 14, 2024
Today's Communication
Continue ceftriaxone x 6 weeks.
For IV abx teaching today in hospital. OK to move up ceftriaxone dose if necessary.
Assessment / Plan
Low back pain
L3/L4 lumbar disc disease, with suspected acute infectious discitis and vertebral osteomyelitis
Strep bovis bacteremia
Fever resolved
Elevated procalcitonin
Elevated ESR, CRP
Diabetes mellitus (uncontrolled; HbA1c = 10.7)
Hx LUTHER
Recommendations:
Blood cultures positive for Strep bovis.
Continue ceftriaxone 2 g IV every 24 hours.
- Patient will require 6 weeks of therapy.
- PICC placed.
- Home infusion sheet given to Case Management.
- For IV abx teaching today in hospital then dc home. OK to move up ceftriaxone dose if necessary.
- Patient will be followed up with Dr. Macias 2 to 3 weeks.
Patient has been evaluated by Gastroenterology.
Follow white count and temperature curve.
Tight glucose control.
����������������������������������������������������������
Chief Complaint
-: Bacteremia and Other (L3-4 discitis)
Subjective / Review of Systems
Feeling better.
Vital Signs / Physical Exam
Vital Signs
Vital Signs
Temp Pulse Resp BP Pulse Ox
97.8 F 72 14 143/71 99
06/14/24 07:26 06/14/24 07:26 06/14/24 07:26 06/14/24 07:26 06/14/24 07:26
Physical Exam
Constitutional: No Acute Distress
Eyes: No Conjunctival Hemorrhage
Pulmonary: Clear and Non Labored
Gastrointestinal: Non Distended
Extremities: Negative Splinter Hemorrhage or Janeway Lesions
Neurological: Awake and Alert
Psychological: Calm
Lines: PICC (Right upper extremity)
Objective Data
Lab Data
Lab Results
06/14/24 04:02
06/14/24 04:02
ESR 42 mm/hour (0-20) H 06/09/24 05:48
PT 15.6 Sec (11.4-14.6) H 06/12/24 05:08
INR 1.21 06/12/24 05:08
Estimated Creat Clear > 125 ml/min 06/14/24 04:02
Lactic Acid 1.7 mmol/L (0.7-2.0) 06/09/24 01:55
Total Bilirubin 1.2 mg/dl (0.2-1.3) 06/11/24 05:12
AST 49 U/L (17-59) 06/11/24 05:12
ALT 39 U/L (0-50) 06/11/24 05:12
Alkaline Phosphatase 71 U/L (38-126) 06/11/24 05:12
C-Reactive Protein 173.10 mg/L (0.0-10.00) H 06/09/24 05:48
Most recent labs reviewed.
Micro Results:
06/09/24 06:21 Blood Culture - Final
Blood/Venous No Growth - Final Report
06/09/24 05:48 Blood Culture - Final
Blood/Venous No Growth - Final Report
06/08/24 12:58 Blood Culture - Final
Blood/Venous Streptococcus bovis
Gram Stain - Final
06/08/24 12:25 Blood Culture - Final
Blood/Venous Streptococcus bovis
Gram Stain - Final
06/08/24 13:26 Urine Culture - Final
Urine
Blood Culture Final 06/08/24
Streptococcus bovis group
Organism 1 Streptococcus bovis
1. Streptococcus bovis
M.I.C. RX
--------- ---
Azithromycin <=0.5 S
Ceftriaxone <=1 S
Clindamycin <=0.06 S
Levofloxacin <=0.5 S
Penicillin G 0.06 S
Tetracycline <=0.5 S
Vancomycin 0.5 S
Imaging:
06/08/24 MRI lumbar: There is a moderate amount of fluid signal intensity in the L3/L4 intervertebral disc. There is mild loss of intervertebral disc space height. There is a moderate amount of adjacent right-sided low T1 and high T2/FLAIR signal
intensity enhancing bone marrow edema. There is also a mild amount of adjacent right-sided paraspinal soft tissue edema demonstrating postcontrast enhancement. No MRI evidence for paraspinal or epidural fluid collection to suggest an abscess.
Overall findings are suspicious for acute infectious discitis at L3/L4 with adjacent acute osteomyelitis. Acute discogenic degenerative disc disease is an alternative diagnostic possibility. Please see full dictation for additional detail.
--- NOTE | 2024-06-14 13:07 | W.DCSUMMARY ---
Discharge Summary
Discharge Data
Date of Admission: 06/08/24
Date of Discharge: 06/14/24
-
Pending Results: No
Hospital Course
Patient 58 years old male with history of LUTHER, just diagnosed with diabetes mellitus, came into the hospital with acute on chronic back pain. He also developed fever after admission. MRI shows acute discitis and osteomyelitis L3-L4. ID was
consulted. His blood cultures were positive for Streptococcus bovis. He had follow-up blood cultures that showed no growth. His transthoracic echo showed possible vegetations so he underwent GALINA and it turned out to be mitral valve calcification
so there was no vegetations. Patient was managed with insulin for his diabetes mellitus and initially long-acting insulin due to his high hemoglobin A1c. But subsequently long-acting insulin was discontinued due to relatively low blood sugars and
he did well with oral hypoglycemics. GI was consulted given correlation of this type of bacteremia with GI malignancy and he will undergo colonoscopy as outpatient. ID recommends 6 weeks of IV antibiotics and this has been arranged for outpatient.
His pain medications were adjusted and pain control has been achieved. No other events were noticed. He patient is afebrile and hemodynamically stable. He will be discharged in stable condition today.
Discharge duration: 35 minutes
Discharge Plan
-
Patient Disposition: Home with Home Care
Discharge Diagnosis/Procedures: Streptococcus bovis bacteremia. Acute L3-L4 discitis with vertebral osteomyelitis.
Diet: Low Cholesterol
Activity: As tolerated
Blood Work: Please PCP to order CBC, BMP within 1 week
Referrals:
Primary care, provider [Other] - in less than 1 week
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
John Macias DO [Active] - in two to three weeks
Kathy Mosley DO [Active] - 06/27/24
Prescriptions:
New
(DME) OneTouch Verio test strips Strip
Qty: 100 0RF
Rx Instructions:
Pt testing 3 times a day
(DME) blood-glucose meter [[employer] Verio Flex meter] Misc
Qty: 1 0RF
Rx Instructions:
Pt testing 3 times a day
(DME) pen needle, diabetic [Sherice 2nd Gen Pen Needle] 32 gauge x 5/32' Needle
Qty: 100 0RF
Rx Instructions:
Pt taking insulin 3 times a day
(DME) lancets [[employer] [facility] Safety Lancet] 30 gauge Misc
Qty: 100 0RF
Rx Instructions:
Pt testing 3 times a day
metformin 500 mg Tablet
500 mg PO BID@0800,1700 30 Days Qty: 60 0RF
lidocaine 4 % Adhesive Patch,Medicated
2 patch topical DAILY Qty: 5 0RF
polyethylene glycol 3350 17 gram Powder In Packet
17 g PO DAILYPRN PRN (Reason: Constipation) Qty: 14 0RF
ceftriaxone 2 gram Recon Soln
2,000 mg IV Q24H 42 Days Qty: 0 0RF
oxycodone 10 mg Tablet
10 mg PO Q4HPRN PRN (Reason: severe pain) Qty: 20 0RF
cyclobenzaprine 5 mg tablet
5 mg PO TID PRN (Reason: muscle spasm) Qty: 20 0RF
gabapentin 100 mg capsule
200 mg PO BID Qty: 30 0RF
glipizide 5 mg tablet
5 mg PO BID Qty: 60 0RF
Continued
ibuprofen [Advil] 200 mg Tablet
400 mg PO Q8HPRN PRN (Reason: mild pain)
Icy Hot (menthol) 5 % Adhesive Patch,Medicated
1 patch TOPICAL HSPRN PRN (Reason: sacral area pain)
Discharge Orders:
Discharge Patient (As Directed); Ordered 06/14/24
Ordered By: Capo Riggs
Discharge Date and Time
Discharge Date/Time: 06/14/24 16:15
Print Language: YI
[2024-06-14] MEDS: ROXICODONE 5 MG PO (13:49)
--- NOTE | 2024-06-14 14:24 | PN.DE ---
Diabetes Education
- -
06/14/2024 DIABETES EDUCATION
Flako received One Touch Ultra glucometer, test strips, and lancets. Reviewed and demonstrated on proper glucose monitoring set up and technique. He performed a repeat demonstration, with glucose of 136 2 hours post prandial. He denies additional
needs.
--- NOTE | 2024-06-14 14:35 | CM ---
CM reviewed chart, patient seen bedside, reports [facility] was out for teaching today, will get dose of antibiotic prior to discharge, [facility] to deliver to patients home this evening. CM left voicemail with [facility] to confirm. Patient
requesting a commode/walker, will need a script from Hospitalist. Patient reports his will provide transportation home. Patient will need appointment with PCP prior to [facility]. CM will continue to follow for all discharge planning needs.
Plan; home with , [facility] for IV antibiotic, [facility]
[2024-06-14] MEDS: ROCEPHIN 2000 MG IV (15:02)
--- NOTE | 2024-06-14 15:02 | PN.CDI ---
CDI
- -
CDI:
Physician Documentation Request
Admit Date: 06/08/24 15:27
Dear Doctor Keely,
Patient admitted with bacteremia suspected due to acute lumbar discitis.
06/14 PN, 'Continue IV antibiotic, IV ceftriaxone.'
06/08 T max 103.0 and HR> 90.
Please clarify which of the following most accurately describes the status of the patient's infection:
Sepsis, POA
Sepsis evolved during hospitalization
Acute lumbar discitis only
Other
Sepsis
- Systemic manifestations of infection, with 2 or more SIRS criteria which include:
- Fever >100.4 degrees F or hypothermia < 96.8 degrees F
- Leukocytosis - WBC > 12,000 or leukopenia - WBC < 4,000 or > 10% bands
- Tachycardia > 90 beats per minute
- Tachypnea - RR > 20 breaths per minute or PaCO2 , 32mmHg
Source: Merck Manual 2013
- Indicate the known or suspected organism
- Indicate the known or suspected underlying infection, such as acute lumbar discitis.
Localized Infection Only, Without Systemic Illness
- indicate the site/source, such as acute lumbar discitis
Other
Use of terms such as suspected, likely, concern for, or probable (associated with a specific diagnosis that is being evaluated, monitored, or treated as if it exists) are acceptable and can be coded in the inpatient setting, when documented at the
time of discharge.
Thank you,
Karina SIMPSONN,RN,CCDS
CDI Specialist
Available via [place] text
Please use your independent medical judgment in providing your response.
[2024-06-14] MEDS: STERILE WATER FOR INJECTION 20 ML IV (15:03)
[2024-06-14 15:08] VITALS: BP 143/80
== END 2024-06-14 16:15 | disposition home health service (06) | DRG 872 ==
LOC: 3 WEST ACU 15:27
PROVIDERS: Internal Medicine; Nurse Practitioner Adult Health; Physician Assistant; Radiology Diagnostic Radiology; ADMITTING PHYSICIAN Internal Medicine; ATTENDING PHYSICIAN Hospitalist; CONSULT PHYSICIAN Internal Medicine; CONSULT PHYSICIAN Internal Medicine Cardiovascular Disease; CONSULT PHYSICIAN Internal Medicine Infectious Disease; EMERGENCY PHYSICIAN Emergency Medicine; FAMILY PHYSICIAN Family Medicine
PROC: B24BZZ4 Ultrasonography of Heart with Aorta, Transesophageal (ICD-10-PCS; 2024-06-12)
PROC: 02H633Z Insertion of Infusion Device into Right Atrium, Percutaneous Approach (ICD-10-PCS; 2024-06-13)
DX: A40.8 Other streptococcal sepsis (principal); M46.26 Osteomyelitis of vertebra, lumbar region; M46.36 Infection of intervertebral disc (pyogenic), lumbar region; E11.69 Type 2 diabetes mellitus with other specified complication; M51.16 Intervertebral disc disorders with radiculopathy, lumbar region; M62.830 Muscle spasm of back; R26.2 Difficulty in walking, not elsewhere classified; D69.6 Thrombocytopenia, unspecified; G47.33 Obstructive sleep apnea (adult) (pediatric); M51.27 Other intervertebral disc displacement, lumbosacral region; E11.65 Type 2 diabetes mellitus with hyperglycemia; F17.290 Nicotine dependence, other tobacco product, uncomplicated; M19.90 Unspecified osteoarthritis, unspecified site; M48.061 Spinal stenosis, lumbar region without neurogenic claudication; G62.9 Polyneuropathy, unspecified
CPT/HCPCS: 71045; 72100; 72158; 80048; 80053; 80061; 81003; 81015; 82248; 82962; 83036; 83605; 83735; 84100; 84145; 84443; 85025; 85027; 85610; 85652; 86140; 87040; 87077; 87086; 87186; 87205; 93005; 93306; 93312; 93320; 93325; 96361; 96374; 96375; 97116; 97161; 97166; 97530; 99284; A9575

== ENCOUNTER 2024-06-27 06:29 | Day surgery (SDC) | payer BC, SELFPAY ==
[2024-06-27 12:39] LABS: Glucose - Point of Care 113 mg/dl (70-99)
== END 2024-06-27 15:07 | disposition home or self-care (01) ==
LOC: GI 06:29
PROVIDERS: ATTENDING PHYSICIAN Internal Medicine
DX: Z12.11 Encounter for screening for malignant neoplasm of colon (principal); K64.9 Unspecified hemorrhoids; R19.5 Other fecal abnormalities; D12.2 Benign neoplasm of ascending colon; D12.3 Benign neoplasm of transverse colon; D12.4 Benign neoplasm of descending colon; D12.5 Benign neoplasm of sigmoid colon
CPT/HCPCS: 45390; 45385; 88305; 82962